=== PATIENT | male | born 1970 | race African-American/Black ===

== ENCOUNTER 2023-09-22 00:11 | Inpatient (IN) | payer OTHER ==
--- NOTE | 2023-09-22 00:58 | ED ---
Weakness HPI - General Chief complaint: Weakness Stated complaint: N-Stemi/SOB Time Seen by Provider: 09/22/23 00:22 Source: patient, EMS Mode of arrival: EMS Limitations: no limitations - History of Present Illness Initial comments: This patient is a 52-year-old man who arrives here as a transfer from [facility]. The patient states that he had gone to have evaluation for a constellation of symptoms that developed "the day before yesterday," he states that he has been having generalized weakness and fatigue, he's been feeling lightheaded when he walks, and his exercise tolerance is decreased. He states that he feels like he is going to pass out if he walks to the bathroom. The patient had gone to the other hospital had workup that revealed elevated troponin at 0.16, he was diagnosed with NSTEMI, and started on heparin. The patient also had mild elevation of the d-dimer. He did have CT angiography of the chest which was negative forPE and he was transferred here. MD Complaint: generalized weakness Onset/Timin -: days(s) - Related Data Home Medications Medication Instructions Recorded Confirmed Albuterol Sulfate [Albuterol 1 - 2 puff PO RT-Q6H PRN 09/22/23 09/22/23 Sulfate Hfa] Budesonide/Formoterol Fumarate 2 puff INHALATION RT-BID 09/22/23 09/22/23 [Symbicort 160-4.5 Mcg Inhaler] Febuxostat [Uloric] 40 mg PO DAILY 09/22/23 09/22/23 HYDROcodone/APAP 10-325MG [[place] 1 tab PO TID 09/22/23 09/22/23 10-325] PARoxetine HCL [Paxil] 40 mg PO DAILY PRN 09/22/23 09/22/23 metFORMIN HCL [Glucophage] 500 mg PO TID 09/22/23 09/22/23 Previous Rx's Medication Instructions Recorded Aspirin 81 mg PO DAILY 30 Days #30 tab 09/26/23 Atorvastatin [Lipitor] 40 mg PO HS #30 tab 09/26/23 Losartan [Cozaar] 12.5 mg PO DAILY 30 Days #30 tab 09/26/23 Metoprolol Tartrate [Lopressor] 25 mg PO BID 30 Days #60 tab 09/26/23 Pantoprazole Sodium [Protonix] 40 mg PO BID 30 Days #60 tab 09/26/23 Thiamine [Vitamin B-1] 100 mg PO DAILY 30 Days #30 tab 09/26/23 Allergies Allergy/AdvReac Type Severity Reaction Status Date / Time atorvastatin [From Lipitor] Allergy Intermediate Rash/Hives Verified 09/22/23 20:33 ciprofloxacin [From Cipro] Allergy Anaphylaxis Verified 09/22/23 06:34 Penicillins Allergy Unknown Verified 09/22/23 06:34 Childhood Review of Systems ROS Statement: Those systems with pertinent positive or pertinent negative responses have been documented in the HPI. ROS Other: All systems not noted in ROS Statement are negative. Constitutional: Reports: weakness. Denies: fever, chills Eyes: Denies: vision change Respiratory: Denies: cough, dyspnea, wheezes Cardiovascular: Reports: palpitations, dyspnea on exertion, syncope (Hand edness). Denies: chest pain, edema Gastrointestinal: Reports: nausea. Denies: abdominal pain, vomiting, diarrhea Musculoskeletal: Reports: myalgia. Denies: back pain Skin: Denies: rash Neurological: Denies: headache, weakness, numbness Past Medical History Past Medical History: Diabetes Mellitus, Hyperlipidemia, Hypertension Additional Past Medical History / Comment(s): arthritis, chronic foot pain, type 2 diabetic Additional Past Surgical History / Comment(s): R hip Past Psychological History: ADD/ADHD, Anxiety, Depression, PTSD Smoking Status: Current every day smoker Past Alcohol Use History: Abuse, Daily Past Drug Use History: Marijuana General Exam Limitations: no limitations General appearance: alert, in no apparent distress Head exam: Present: atraumatic, normocephalic Eye exam: Present: normal appearance. Absent: scleral icterus, conjunctival injection ENT exam: Present: normal oropharynx Neck exam: Present: normal inspection Respiratory exam: Present: normal lung sounds bilaterally. Absent: respiratory distress, wheezes, rales, rhonchi, stridor, accessory muscle use Cardiovascular Exam: Present: normal rhythm, tachycardia, normal heart sounds. Absent: systolic murmur, diastolic murmur, rubs, gallop GI/Abdominal exam: Present: soft. Absent: distended, tenderness, guarding, rebound, rigid, mass Extremities exam: Present: normal inspection, normal capillary refill. Absent: pedal edema, calf tenderness Back exam: Present: normal inspection. Absent: CVA tenderness (R), CVA tenderness (L) Neurological exam: Present: alert Skin exam: Present: warm, dry, intact, normal color. 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 H Flooring Sales Manager ] Respiratory 18 22 Rate Blood Pressure 119/95 94/71 Blood Pressure [Right Arm] O2 Sat by Pulse 98 98 Oximetry 09/22/23 09/22/23 09/22/23 02:00 03:00 04:00 Temperature Pulse Rate 138 H 129 H 116 H Pulse Rate [ Flooring Sales Manager ] Respiratory 20 15 16 Rate Blood Pressure 90/67 105/78 114/81 Blood Pressure [Right Arm] O2 Sat by Pulse 99 99 97 Oximetry 09/22/23 09/22/23 09/22/23 05:55 05:58 08:00 Temperature 98.6 F 98 F Pulse Rate 186 H 130 H Pulse Rate [ 124 H Flooring Sales Manager ] Respiratory 20 17 Rate Blood Pressure 126/93 Blood Pressure 100/78 [Right Arm] O2 Sat by Pulse 100 99 Oximetry 09/22/23 09/22/23 11:35 15:00 Temperature Pulse Rate Pulse Rate [ 122 H 106 H Flooring Sales Manager ] Respiratory 18 Rate Blood Pressure Blood Pressure 97/62 110/78 [Right Arm] O2 Sat by Pulse 100 Oximetry EKG Findings - EKG Results: EKG: interpreted by ERMD, sinus rhythm, normal axis, normal QRS, normal ST/T EKG shows: tachycardia (Rate 125 bpm) Medical Decision Making - Medical Decision Making This patient is 52-year-old man transferred here from the outside hospital where he had workup and found to have NSTEMI. Was pt. sent in by a medical professional or institution (, PA, EMERGENCY ROOM RN, urgent care, hospital, or jail...) When possible be specific @ -[The patient is transferred from [facility] Did you speak to anyone other than the patient for history (EMS, parent, family, police, friend...)? What history was obtained from this source @ -[Case was discussed with the transferring physician Did you review nursing and triage notes (agree or disagree)? Why? @ -[I reviewed and agree with nursing and triage notes] Were old charts reviewed (outside hosp., previous admission, EMS record, old EKG, old radiological studies, urgent care reports/EKG's, jail records)? Report findings @ -[No old charts were reviewed] Differential Diagnosis (chest pain, altered mental status, abdominal pain women, abdominal pain men, vaginal bleeding, weakness, fever, dyspnea, syncope, headache, dizziness, GI bleed, back pain, seizure, CVA, palpatations, mental health, musculoskeletal)? @ -[Differential Chest Pain: Stable Angina, Unstable Angina, STEMI, NSTEMI Aortic Dissection, Pneumothorax, Musculoskeletal, Esophageal Spasm GERD, Cholecystitis, Pancreatitis, Zoster, this is not meant to be an all-inclusive list. EKG interpreted by me (3pts min.). @ -[As above] X-rays interpreted by me (1pt min.). @ -[None done] CT interpreted by me (1pt min.). @ -[None done] U/S interpreted by me (1pt. min.). @ -[None done] What testing was considered but not performed or refused? (CT, X-rays, U/S, labs)? Why? @ -[None] What meds were considered but not given or refused? Why? @ -[None] Did you discuss the management of the patient with other professionals (professionals i.e. , PA, EMERGENCY ROOM RN, lab, RT, psych nurse, elementary school social worker, file machine operator, teacher, real estate officer, caser)? Give summary @ -[Case discussed with admitting physician and there treatment recommendations are incorporated Was smoking cessation discussed for >3mins.? @ -[No] Was critical care preformed (if so, how long)? @ -[No] Were there social determinants of health that impacted care today? How? (Homelessness, low income, unemployed, alcoholism, drug addiction, transpo rtation, low edu. Level, literacy, decrease access to med. care, care home, rehab)? @ -[No] Was there de-escalation of care discussed even if they declined (Discuss DNR or withdrawal of care, Hospice)? DNR status @ -[No] What co-morbidities impacted this encounter? (DM, HTN, Smoking, COPD, CAD, Cancer, CVA, ARF, Chemo, Hep., AIDS, mental health diagnosis, sleep apnea, morbid obesity)? @ -[None] Was patient admitted / discharged? Hospital course, mention meds given and route, prescriptions, significant lab abnormalities, going to OR and other pertinent info. @ -[Patient is admitted to have further evaluation as well as cardiology consultation. Undiagnosed new problem with uncertain prognosis? @ -[No] Drug Therapy requiring intensive monitoring for toxicity (Heparin, Nitro, Insulin, Cardizem)? @ -[No] Were any procedures done? @ -[No] Diagnosis/symptom? @ -[Acute NSTEMI Acute, or Chronic, or Acute on Chronic? @ -[Acute Uncomplicated (without systemic symptoms) or Complicated (systemic symptoms)? @ -[Uncomplicated Side effects of treatment? @ -[No] Exacerbation, Progression, or Severe Exacerbation? @ -[No] Poses a threat to life or bodily function? How? (Chest pain, [place], [place], pneumonia, PE, COPD, DKA, ARF, appy, cholecystitis, CVA, Diverticulitis, Homicidal, Suicidal, threat to staff... and all critical care pts) @ -[No] - Lab Data Result diagrams: 09/26/23 07:15 09/26/23 07:15 Disposition Clinical Impression: Non-ST elevation [place] (NSTEMI) Disposition: ADMITTED IP TO THIS HOSP Condition: Fair Is patient prescribed a controlled substance at d/c from ED?: No
[2023-09-22] MEDS ORDERED: NITROGLYCERIN SL TABS 0.4 MG TAB SUBLINGUAL PRN ×2 (01:01→11:12)
[2023-09-22] MEDS ORDERED: chlordiazePOXIDE 25 MG CAP PO PRN (01:03)
[2023-09-22] MEDS ORDERED: HEPARIN SODIUM 1,000 UN/ML (10ML VL) IV PRN (01:03)
[2023-09-22] MEDS ORDERED: LORazepam 2 MG/ML INJ IV PRN ×2 (01:03)
[2023-09-22] MEDS: HEPARIN SOD,PORK IN 0.45% NACL 25,000 UNIT in 0.45% NACL 1 250ML.BAG IV SCH (01:44)
[2023-09-22] MEDS: THIAMINE 100 MG/ML 2 ML VIAL IM STA (01:50)
[2023-09-22] MEDS: hydrALAZINE HCL 20 MG/ML 1 ML VIAL IVP STA (02:59)
[2023-09-22] MEDS: SODIUM CHLORIDE 0.9% 1,000 ML IV ONE (03:15)
[2023-09-22 06:06] LABS: Glucose,Whole Blood 181 mg/dL (70-110)
[2023-09-22] MEDS: LORazepam 2 MG/ML INJ IV PRN (07:05)
[2023-09-22 09:53] LABS: ALT 93 U/L (4-49); AST 49 U/L (17-59); African American GFR (CKD) >90 (>60 ml/min/1.73 sqM); Albumin 2.5 g/dL (3.5-5.0); Alkaline Phosphatase 59 U/L (38-126); Anion Gap 7 mmol/L; Blood Urea Nitrogen 48 mg/dL (9-20); Carbon Dioxide 17 mmol/L (22-30); Chloride 116 mmol/L (98-107); Glucose 145 mg/dL (74-99); Non-African American GFR(CKD) 90 (>60 ml/min/1.73 sqM); Potassium 4.1 mmol/L (3.5-5.1); Sodium 140 mmol/L (137-145); Total Bilirubin 0.7 mg/dL (0.2-1.3)
[2023-09-22] MEDS ORDERED: ALBUTEROL NEBULIZED 2.5 MG/3 ML INHALATION PRN (10:07)
[2023-09-22] MEDS ORDERED: ALPRAZolam 0.5 MG TAB PO PRN (11:12)
[2023-09-22] MEDS ORDERED: ALPRAZolam 0.25 MG TAB PO PRN (11:12)
[2023-09-22] MEDS: METOPROLOL TARTRATE 25 MG TAB PO SCH (11:14)
--- NOTE | 2023-09-22 11:16 | P.CRDCN ---
History of Present Illness History of present illness: HISTORY OF PRESENT ILLNESS: This is a 52-year-old male with a past medical history significant for hypertension, diabetes, ADD, anxiety, depression, PTSD, nicotine dependence, and alcohol abuse. 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 We have been asked to see the patient in consultation for abnormal troponins. Patient examined at the bedside. Patient initially presented to [facility] for weakness, fatigue, and lightheadedness. The patient states he was called by his PCP and told he had elevated liver tests and to go to the ER. The patient was found to have elevated troponins of 0.16 and was started on IV heparin and transferred to [facility]. The patient also had a CTA performed at [facility] which was negative for PE. At the time of examination, the patient denies any chest pain or pressure. He denies any shortness of breath. He states he is supposed to have a stress test performed on an outpatient basis in the near future. * EKG reveals sinus tachycardia with no signs of acute ischemia * Laboratory data: Troponin 0.387. 0.290. * Current home cardiac medications include amlodipine 7.5 mg daily and Catapres 0.1 mg 3 times a day REVIEW OF SYSTEMS: At the time of my exam: CONSTITUTIONAL: Denies fever or chills. HEENT: Denies blurred vision, vision changes, or eye pain. Denies hemoptysis CARDIOVASCULAR: Denies chest pain. Denies orthopnea. Denies PND. Denies palpitations RESPIRATORY: Denies shortness of breath. GASTROINTESTINAL: Denies abdominal pain. Denies nausea or vomiting. HEMATOLOGIC: Denies bleeding disorders. GENITOURINARY: Denies any blood in urine. SKIN: Denies pruitis. Denies rash. PHYSICAL EXAM: VITAL SIGNS: Reviewed. GENERAL: Well-developed in no acute distress. HEENT: Head is normocephalic. Pupils are equal, round. Sclerae anicteric. Mucous membranes of the mouth are moist. Neck supple. No JVD or thyromegaly LUNGS: Respirations even and unlabored. Lungs essentially clear to auscultation bilaterally. HEART: Regular rate and rhythm. S1 and S2 heard. ABDOMEN: Soft. Nondistended. Nontender. EXTREMITIES: Normal range of motion. No clubbing or cyanosis. Peripheral pulses intact. No lower extremity edema NEUROLOGIC: Awake and alert. Oriented x 3. ASSESSMENT: Generalized weakness Lightheadedness Non-STEMI Mildly elevated LFTs Hypertension Diabetes ADD Anxiety Depression PTSD Nicotine dependence Alcohol abuse, patient drinks 1 pint per day Marijuana use PLAN: Obtain 2-D echo to assess cardiac structure and function Add aspirin 81 mg daily, atorvastatin 40 mg at night, and metoprolol 25 mg twice a day Check lipid panel and hemoglobin A1c Continue telemetry monitoring Nothing by mouth midnight Patient to undergo cardiac catheterization tomorrow with Dr. Gallegos Recommend abstinence from alcohol, marijuana, and smoking cessation Further recommendations pending patient's course Nurse practitioner note has been reviewed by physician. Signing provider agrees with the documented findings, assessment, and plan of care. Past Medical History Past Medical History: Diabetes Mellitus, Hyperlipidemia, Hypertension Additional Past Medical History / Comment(s): arthritis, chronic foot pain, type 2 diabetic Additional Past Surgical History / Comment(s): R hip Past Psychological History: ADD/ADHD, Anxiety, Depression, PTSD Smoking Status: Current every day smoker Past Alcohol Use History: Abuse, Daily Past Drug Use History: Marijuana Medications and Allergies Home Medications Medication Instructions Recorded Confirmed Type Albuterol Sulfate [Albuterol 1 - 2 puff PO RT-Q6H PRN 09/22/23 09/22/23 History Sulfate Hfa] Budesonide/Formoterol Fumarate 2 puff INHALATION RT-BID 09/22/23 09/22/23 History [Symbicort 160-4.5 Mcg Inhaler] Febuxostat [Uloric] 40 mg PO DAILY 09/22/23 09/22/23 History HYDROcodone/APAP 10-325MG [[place] 1 tab PO TID 09/22/23 09/22/23 History 10-325] PARoxetine HCL [Paxil] 40 mg PO DAILY PRN 09/22/23 09/22/23 History amLODIPine [Norvasc] 7.5 mg PO DAILY 09/22/23 09/22/23 History cloNIDine HCL [Catapres] 0.1 mg PO TID 09/22/23 09/22/23 History metFORMIN HCL [Glucophage] 500 mg PO TID 09/22/23 09/22/23 History Allergies Allergy/AdvReac Type Severity Reaction Status Date / Time ciprofloxacin [From Cipro] Allergy Anaphylaxis Verified 09/22/23 06:34 Penicillins Allergy Unknown Verified 09/22/23 06:34 Childhood Physical Exam Vitals: Vital Signs Temp Pulse Pulse Resp BP Pulse Ox 09/22/23 05:58 98.6 F 130 H 20 126/93 100 09/22/23 05:55 186 H 09/22/23 04:00 116 H 16 114/81 97 09/22/23 03:00 129 H 15 105/78 99 09/22/23 02:00 138 H 20 90/67 99 09/22/23 01:00 131 H 22 94/71 98 09/22/23 00:25 126 H 09/22/23 00:13 99.4 F 125 H 18 119/95 98 Intake and Output 09/21/23 09/22/23 09/22/23 22:59 06:59 14:59 Other: Weight 108.862 kg Results 09/22/23 08:24 Cardiac Enzymes 09/22/23 09/22/23 Range/Units 01:19 04:47 Troponin I 0.387 H* 0.290 H* (0.000-0.034) ng/mL Coagulation 09/22/23 Range/Units 04:47 APTT 28.8 (22.0-30.0) sec Current Medications Generic Name Dose Route Start Last Admin Trade Name Freq PRN Reason Stop Dose Admin Aspirin 325 mg 09/23/23 09:00 Aspirin 325 Mg Tab PO DAILY IRMA Chlordiazepoxide HCl 25 mg 09/22/23 01:03 Chlordiazepoxide 25 Mg Cap PO Q4HR PRN [place] 4 To 5 Heparin Sodium (Porcine) 0 unit 09/22/23 01:03 Heparin Sodium 1,000 Un/Ml (10ml Vl) IV PER PROTOCOL PRN Low PTT Protocol Heparin Sodium/Sodium Chloride 250 mls @ 10 mls/hr 09/22/23 01:15 09/22/23 01:44 25,000 unit/ Sodium Chloride IV 9.1859 units/kg/hr .Q24H IRMA 10 mls/hr Administration Protocol 9.1859 UNITS/KG/HR Lorazepam 2 mg 09/22/23 01:03 Lorazepam 2 Mg/Ml Inj IV 09/24/23 01:04 Q10M PRN CIWA 16 or higher Lorazepam 1 mg 09/22/23 01:03 09/22/23 07:05 Lorazepam 2 Mg/Ml Inj IV 1 mg Q2HR PRN Administration CIWA 8 or 9 Lorazepam 1 mg 09/22/23 01:03 Lorazepam 2 Mg/Ml Inj IV Q1HR PRN CIWA 10 to 15 Nitroglycerin 0.4 mg 09/22/23 01:01 Nitroglycerin Sl Tabs 0.4 Mg Tab SUBLINGUAL Q5M PRN Chest Pain Thiamine HCl 100 mg 09/23/23 09:00 Thiamine 100 Mg Tab PO DAILY IRMA Intake and Output 09/21/23 09/22/23 09/22/23 22:59 06:59 14:59 Other: Weight 108.862 kg
[2023-09-22] MEDS ORDERED: DEXTROSE 50% SYRINGE 50 ML IVP PRN ×2 (12:01)
--- NOTE | 2023-09-22 12:05 | P.HPIM ---
History of Present Illness H&P Date: 09/22/23 History of present illness; patient is a 52-year-old gentleman with past medical history significant for hypertension, diabetes mellitus, depression who is a transfer from [facility] for elevated troponins. Patient stated was all right one week back when he started noticing that he was getting short of breath on exertion. Patient stated that he was very weak, unable to stand straight. Patient stated that he was hurting all over the body. Because of these symptoms, patient went to his PCP who ran some blood work . Later his PCP told him to, immediately come to the ER so patient went to [facility]. Patient noticed that he was getting short of breath on rest as well as exertion. Denied any chest pain. There was no complain of any nausea, vomiting or a bdominal pain. Because of these symptoms, patient was worked up at [facility], troponin was elevated . CTA chest done was negative for any PE. Patient started on pharmacy dose heparin and was transferred to [facility] REVIEW OF SYSTEMS: CONSTITUTIONAL: No fever, as mentioned above HEENT: No recent visual problems or hearing problems. Denied any sore throat. CARDIOVASCULAR: As mentioned above PULMONARY: As mentioned above GASTROINTESTINAL: No diarrhea, no nausea, no vomiting, no abdominal pain. NEUROLOGICAL: No headaches, no weakness, no numbness. HEMATOLOGICAL: Denies any bleeding or petechiae. GENITOURINARY: Denies any burning micturition, frequency, or urgency. MUSCULOSKELETAL/RHEUMATOLOGICAL: Denies any joint pain, swelling, or any muscle pain. ENDOCRINE: Denies any polyuria or polydipsia. The rest of the 14-point review of systems is negative. PHYSICAL EXAMINATION: GENERAL: The patient is alert and oriented x3, not in any acute distress. Well developed, well nourished. HEENT: Pupils are round and equally reacting to light. EOMI. No scleral icterus. No conjunctival pallor. Normocephalic, atraumatic. No pharyngeal erythema. No thyromegaly. CARDIOVASCULAR: S1 and S2 present. No murmurs, rubs, or gallops. PULMONARY: Chest is clear to auscultation, no wheezing or crackles. ABDOMEN: Soft, nontender, nondistended, normoactive bowel sounds. No palpable organomegaly. MUSCULOSKELETAL: No joint swelling or deformity. EXTREMITIES: No cyanosis, clubbing, or pedal edema. NEUROLOGICAL: Gross neurological examination did not reveal any focal deficits. SKIN: No rashes. Assessment and plan Non-ST elevation [place] Hypertension Rev-luuqrhd-olxeabydv diabetes mellitus ADD Anxiety Depression PTSD Nicotine dependence Alcohol abuse, patient drinks 1 pint per day Marijuana use Monitor vital signs Monitor CBC Monitor CMP Continue telemetry monitoring Trend troponin Ordered 2-D echo Check HbA1c level Check lipid panel Continue pharmacy dose heparin Continue CIWA protocol Continue thiamine and folic acid Cardiology consulted Hold blood pressure medications at this time as patient is normotensive Resume home meds Labs and medication were reviewed.. Continue same treatment. Continue with sym ptomatic treatment. Resume home medication. Monitor labs and vitals. DVT and GI prophylaxis. Further recommendations as per clinical course of the patient Dictation was produced using [employer] dictation software. please excuse any grammatical, word or spelling errors. Past Medical History Past Medical History: Diabetes Mellitus, Hyperlipidemia, Hypertension Additional Past Medical History / Comment(s): arthritis, chronic foot pain, type 2 diabetic Additional Past Surgical History / Comment(s): R hip Past Psychological History: ADD/ADHD, Anxiety, Depression, PTSD Smoking Status: Current every day smoker Past Alcohol Use History: Abuse, Daily Past Drug Use History: Marijuana Medications and Allergies Home Medications Medication Instructions Recorded Confirmed Type Albuterol Sulfate [Albuterol 1 - 2 puff PO RT-Q6H PRN 09/22/23 09/22/23 History Sulfate Hfa] Budesonide/Formoterol Fumarate 2 puff INHALATION RT-BID 09/22/23 09/22/23 History [Symbicort 160-4.5 Mcg Inhaler] Febuxostat [Uloric] 40 mg PO DAILY 09/22/23 09/22/23 History HYDROcodone/APAP 10-325MG [[place] 1 tab PO TID 09/22/23 09/22/23 History 10-325] PARoxetine HCL [Paxil] 40 mg PO DAILY PRN 09/22/23 09/22/23 History amLODIPine [Norvasc] 7.5 mg PO DAILY 09/22/23 09/22/23 History cloNIDine HCL [Catapres] 0.1 mg PO TID 09/22/23 09/22/23 History metFORMIN HCL [Glucophage] 500 mg PO TID 09/22/23 09/22/23 History Allergies Allergy/AdvReac Type Severity Reaction Status Date / Time ciprofloxacin [From Cipro] Allergy Anaphylaxis Verified 09/22/23 06:34 Penicillins Allergy Unknown Verified 09/22/23 06:34 Childhood Physical Exam Vitals: Vital Signs Temp Pulse Pulse Resp BP BP Pulse Ox 09/22/23 08:00 98 F 124 H 17 100/78 99 09/22/23 05:58 98.6 F 130 H 20 126/93 100 09/22/23 05:55 186 H 09/22/23 04:00 116 H 16 114/81 97 09/22/23 03:00 129 H 15 105/78 99 09/22/23 02:00 138 H 20 90/67 99 09/22/23 01:00 131 H 22 94/71 98 09/22/23 00:25 126 H 09/22/23 00:13 99.4 F 125 H 18 119/95 98 Intake and Output 09/21/23 09/22/23 09/22/23 22:59 06:59 14:59 Other: Weight 108.862 kg Results CBC & Chem 7: 09/22/23 08:24 Labs: Abnormal Lab Results - Last 24 Hours (Table) 09/22/23 09/22/23 09/22/23 Range/Units 01:19 04:47 06:05 Chloride (98-107) mmol/L Carbon Dioxide (22-30) mmol/L BUN (9-20) mg/dL Glucose (74-99) mg/dL POC Glucose (mg/dL) 181 H (70-110) mg/dL Calcium (8.4-10.2) mg/dL ALT (4-49) U/L Troponin I 0.387 H* 0.290 H* (0.000-0.034) ng/mL Total Protein (6.3-8.2) g/dL Albumin (3.5-5.0) g/dL 09/22/23 09/22/23 Range/Units 08:24 08:24 Chloride 116 H (98-107) mmol/L Carbon Dioxide 17 L (22-30) mmol/L BUN 48 H (9-20) mg/dL Glucose 145 H (74-99) mg/dL POC Glucose (mg/dL) (70-110) mg/dL Calcium 8.0 L (8.4-10.2) mg/dL ALT 93 H (4-49) U/L Troponin I 0.194 H* (0.000-0.034) ng/mL Total Protein 5.0 L (6.3-8.2) g/dL Albumin 2.5 L (3.5-5.0) g/dL
[2023-09-22 12:40] LABS: Glucose,Whole Blood 151 mg/dL (70-110)
[2023-09-22] MEDS: INSULIN ASPART (NovoLOG) 100 UNIT/ML VIAL SQ SCH (12:41)
[2023-09-22 15:27] LABS: Basophils # (A) 0.1 k/uL (0-0.2); Basophils % (A) 1 %; Eosinophils # (A) 0.1 k/uL (0-0.7); Eosinophils % (A) 2 %; HCT 25.7 % (39.0-53.0); HGB 8.9 gm/dL (13.0-17.5); Lymphocytes # (A) 4.3 k/uL (1.0-4.8); Lymphocytes % (A) 48 %; MCH 33.6 pg (25.0-35.0); MCHC 34.5 g/dL (31.0-37.0); MCV 97.3 fL (80.0-100.0); Mean Platelet Volume 7.4; Monocytes # (A) 0.4 k/uL (0-1.0); Monocytes % (A) 5 %; Neutrophils # (A) 3.9 k/uL (1.3-7.7); Neutrophils % (A) 43 %; Platelet Count 197 k/uL (150-450); RBC 2.64 m/uL (4.30-5.90); RDW 14.3 % (11.5-15.5); WBC 9.1 k/uL (3.8-10.6)
[2023-09-22 15:59] LABS: ALT 82 U/L (4-49); AST 53 U/L (17-59); African American GFR (CKD) >90 (>60 ml/min/1.73 sqM); Albumin 2.7 g/dL (3.5-5.0); Alkaline Phosphatase 52 U/L (38-126); Anion Gap 5 mmol/L; Blood Urea Nitrogen 50 mg/dL (9-20); Calcium 8.2 mg/dL (8.4-10.2); Carbon Dioxide 20 mmol/L (22-30); Chloride 115 mmol/L (98-107); Glucose 126 mg/dL (74-99); Non-African American GFR(CKD) 88 (>60 ml/min/1.73 sqM); Sodium 140 mmol/L (137-145); Total Protein 5.5 g/dL (6.3-8.2)
[2023-09-22 16:04] LABS: Potassium 4.8 mmol/L (3.5-5.1)
[2023-09-22] MEDS: PANTOPRAZOLE 40 MG/10 ML VIAL IVP ONE (16:22)
[2023-09-22 16:37] LABS: Glucose,Whole Blood 110 mg/dL (70-110)
[2023-09-22] MEDS: ATORVASTATIN 40 MG TAB PO SCH (20:04)
[2023-09-22] MEDS: PANTOPRAZOLE 40 MG/10 ML VIAL IVP SCH (20:04)
[2023-09-22 20:21] LABS: Glucose,Whole Blood 166 mg/dL (70-110)
[2023-09-22 20:46] LABS: Basophils # (A) 0.1 k/uL (0-0.2); Basophils % (A) 1 %; Eosinophils # (A) 0.1 k/uL (0-0.7); Eosinophils % (A) 1 %; HCT 25.3 % (39.0-53.0); HGB 8.6 gm/dL (13.0-17.5); Lymphocytes # (A) 3.6 k/uL (1.0-4.8); Lymphocytes % (A) 47 %; MCH 33.4 pg (25.0-35.0); MCHC 34.2 g/dL (31.0-37.0); MCV 97.8 fL (80.0-100.0); Mean Platelet Volume 7.7; Monocytes # (A) 0.4 k/uL (0-1.0); Monocytes % (A) 5 %; Neutrophils # (A) 3.4 k/uL (1.3-7.7); Neutrophils % (A) 44 %; Platelet Count 215 k/uL (150-450); RBC 2.59 m/uL (4.30-5.90); RDW 14.4 % (11.5-15.5); WBC 7.7 k/uL (3.8-10.6)
[2023-09-22] MEDS: SYMBICORT 160-4.5 MCG INHALER INHALATION SCH (21:56)
[2023-09-23 02:40] LABS: Basophils % (A) 0 %; Eosinophils # (A) 0.1 k/uL (0-0.7); Eosinophils % (A) 1 %; HCT 23.7 % (39.0-53.0); Lymphocytes # (A) 3.4 k/uL (1.0-4.8); Lymphocytes % (A) 54 %; MCH 32.6 pg (25.0-35.0); MCHC 33.6 g/dL (31.0-37.0); Mean Platelet Volume 7.4; Monocytes # (A) 0.3 k/uL (0-1.0); Monocytes % (A) 5 %; Neutrophils # (A) 2.3 k/uL (1.3-7.7); Neutrophils % (A) 36 %; Platelet Count 213 k/uL (150-450); RBC 2.45 m/uL (4.30-5.90); RDW 14.4 % (11.5-15.5); WBC 6.3 k/uL (3.8-10.6)
[2023-09-23 06:21] LABS: Glucose,Whole Blood 132 mg/dL (70-110)
[2023-09-23] MEDS ORDERED: HEPARIN SODIUM,PORCINE (1 ML) 2,500 UNIT in SODIUM CHLORIDE 0.9% 250 ML IRRIGATION PRN (07:00)
[2023-09-23] MEDS ORDERED: HEPARIN SODIUM,PORCINE 10,000 UNIT in SODIUM CHLORIDE 0.9% 1,000 ML IRRIGATION PRN (07:00)
[2023-09-23] MEDS: THIAMINE 100 MG TAB PO SCH (08:47)
[2023-09-23] MEDS ORDERED: ASPIRIN 325 MG TAB PO SCH (09:00)
[2023-09-23 09:03] LABS: Basophils % (A) 1 %; Eosinophils # (A) 0.1 k/uL (0-0.7); Eosinophils % (A) 2 %; HCT 22.3 % (39.0-53.0); HGB 7.4 gm/dL (13.0-17.5); Lymphocytes # (A) 2.8 k/uL (1.0-4.8); Lymphocytes % (A) 50 %; MCH 32.5 pg (25.0-35.0); MCHC 33.4 g/dL (31.0-37.0); MCV 97.3 fL (80.0-100.0); Mean Platelet Volume 7.7; Monocytes # (A) 0.3 k/uL (0-1.0); Monocytes % (A) 6 %; Neutrophils # (A) 2.1 k/uL (1.3-7.7); Neutrophils % (A) 38 %; Platelet Count 182 k/uL (150-450); RBC 2.29 m/uL (4.30-5.90); RDW 14.4 % (11.5-15.5); WBC 5.6 k/uL (3.8-10.6)
[2023-09-23 09:09] LABS: Prothrombin Time 11.1 sec (10.0-12.5)
[2023-09-23 09:21] LABS: ALT 72 U/L (4-49); AST 55 U/L (17-59); African American GFR (CKD) 86 (>60 ml/min/1.73 sqM); Albumin 2.4 g/dL (3.5-5.0); Alkaline Phosphatase 59 U/L (38-126); Anion Gap 2 mmol/L; Blood Urea Nitrogen 29 mg/dL (9-20); Calcium 8.3 mg/dL (8.4-10.2); Carbon Dioxide 22 mmol/L (22-30); Chloride 115 mmol/L (98-107); Glucose 108 mg/dL (74-99); Non-African American GFR(CKD) 74 (>60 ml/min/1.73 sqM); Potassium 4.2 mmol/L (3.5-5.1); Sodium 139 mmol/L (137-145); Total Bilirubin 0.6 mg/dL (0.2-1.3); Total Protein 4.7 g/dL (6.3-8.2)
[2023-09-23] MEDS: ASPIRIN 325 MG TAB PO ONE (09:44)
[2023-09-23] MEDS: ATORVASTATIN 80 MG TAB PO ONE (09:44)
[2023-09-23 10:14] VITALS: BMI 31.6
--- NOTE | 2023-09-23 11:54 | CA ---
Transthoracic Echo Report Name: Krish Mcmanus Age: 52 Gender: M : 1970 Exam Date: 09/22/2023 09:51 Exam Location: [place] [facility] Ht (in): 73 Wt (lb): 240 Ordering Physician: Eliane Olmedo Attending/Referring Phys: [id number], Shara Mill Oiler Juanis Russell [facility] Procedure CPT: Indications: Elevated troponins, LV function Cardiac Hx: Technical Quality: Technically difficult study Contrast 1: Definity Total Dose (mL): 6 Contrast 2: Total Dose (mL): MEASUREMENTS (Male / Female) Normal Values 2D ECHO LV Diastolic Diameter PLAX 3.7 cm 4.2 - 5.9 / 3.9 - 5.3 cm LV Systolic Diameter PLAX 3.0 cm IVS Diastolic Thickness 1.1 cm 0.6 - 1.0 / 0.6 - 0.9 cm LVPW Diastolic Thickness 1.0 cm 0.6 - 1.0 / 0.6 - 0.9 cm LV Relative Wall Thickness 0.6 LVOT Diameter 2.1 cm Ascending Aorta Diameter 3.2 cm M-MODE Aortic Root Diameter MM 3.2 cm LA Systolic Diameter MM 3.4 cm LA Ao Ratio MM 1.1 AV Cusp Separation MM 2.3 cm DOPPLER AV Peak Velocity 92.3 cm/s AV Peak Gradient 3.4 mmHg AV Mean Velocity 70.5 cm/s AV Mean Gradient 2.3 mmHg AV Velocity Time Integral 11.4 cm LVOT Peak Velocity 83.8 cm/s LVOT Peak Gradient 2.8 mmHg LVOT Velocity Time Integral 12.3 cm LVOT Stroke Volume 42.6 cm??? LVOT Stroke Volume Index 18.3 ml/m??? LVOT Cardiac Index 2152.7 cm???/min???m??? AV Area Cont Eq vti 3.7 cm??? AV Area Cont Eq pk 3.1 cm??? LV E' Lateral Velocity 11.4 cm/s LV E' Septal Velocity 10.2 cm/s TR Peak Velocity 220.9 cm/s TR Peak Gradient 19.5 mmHg Right Atrial Pressure 3.0 mmHg Pulmonary Artery Systolic Pressu 22.5 mmHg Right Ventricular Systolic Press 22.5 mmHg FINDINGS Left Ventricle Mildly increased left ventricular wall thickness. Left ventricular cavity size normal. Left ventricular ejection fraction is estimated at 40-45%. Mildly reduced global left ventricular systolic function. Right Ventricle Right ventricle not well visualized. Right Atrium Right atrium not well visualized. Left Atrium Normal left atrial size. Mitral Valve Mitral valve not well visualized. No mitral regurgitation. Aortic Valve Aortic valve not well visualized. Trileaflet aortic valve. No aortic valve stenosis or regurgitation. Tricuspid Valve Tricuspid valve not well visualized. Trace tricuspid regurgitation. Pulmonic Valve Pulmonic valve not well visualized. Pericardium No pericardial effusion. Aorta Normal size aortic root and proximal ascending aorta. CONCLUSIONS Technically difficult study. Left ventricular ejection fraction is estimated at 40%. Right ventricle not well visualized No significant valvular dysfunction Previewed by: Dr Melchor Rodriguez (Electronically Signed) Final Date: 23 September 2023 11:53
[2023-09-23 11:56] LABS: Glucose,Whole Blood 174 mg/dL (70-110)
--- NOTE | 2023-09-23 12:38 | P.PN ---
Subjective HISTORY OF PRESENT ILLNESS: This is a 52-year-old male with a past medical history significant for hypertension, diabetes, ADD, anxiety, depression, PTSD, nicotine dependence, and alcohol abuse. Patient does not follow with a outside cutter hand. We have been asked to see the patient in consultation for abnormal troponins. Patient examined at the bedside. Patient initially presented to [facility] for weakness, fatigue, and lightheadedness. The patient states he was called by his PCP and told he had elevated liver tests and to go to the ER. The patient was found to have elevated troponins of 0.16 and was started on IV heparin and transferred to [facility]. The patient also had a CTA performed at [facility] which was negative for PE. At the time of examination, the patient denies any chest pain or pressure. He denies any shortness of breath. He states he is supposed to have a stress test performed on an outpatient basis in the near future. * EKG reveals sinus tachycardia with no signs of acute ischemia * Laboratory data: Troponin 0.387. 0.290. * Current home cardiac medications include amlodipine 7.5 mg daily and Catapres 0.1 mg 3 times a day 09/23/2023 Patient examined this morning at the bedside. Patient was started on IV heparin yesterday but he developed dark tarry stools and it was discontinued. He denies chest pain or pressure. Denies SOB. Vital signs are stable. Echo reveals EF 40- 45%. PHYSICAL EXAM: VITAL SIGNS: Reviewed. GENERAL: Well-developed in no acute distress. HEENT: Head is normocephalic. Pupils are equal, round. Sclerae anicteric. Mucous membranes of the mouth are moist. Neck supple. No JVD or thyromegaly LUNGS: Respirations even and unlabored. Lungs essentially clear to auscultation bilaterally. HEART: Regular rate and rhythm. S1 and S2 heard. ABDOMEN: Soft. Nondistended. Nontender. EXTREMITIES: Normal range of motion. No clubbing or cyanosis. Peripheral pulses intact. No lower extremity edema NEUROLOGIC: Awake and alert. Oriented x 3. ASSESSMENT: Generalized weakness Lightheadedness Non-STEMI Cardiomyopathy, ischemic versus nonischemic Mildly elevated LFTs Hypertension Diabetes ADD Anxiety Depression PTSD Nicotine dependence Alcohol abuse, patient drinks 1 pint per day Marijuana use Anemia with black tarry stools PLAN: IV Heparin discontinued. Monitor hemoglobin Continue current cardiac medications General surgery consulted. Await evaluation. Recommend cardiac cath when medically stable Recommend abstinence from alcohol, marijuana, and smoking cessation Further recommendations pending patient's course Nurse practitioner note has been reviewed by physician. Signing provider agrees with the documented findings, assessment, and plan of care. Objective - Vital Signs Vital signs: Vital Signs Temp 98.3 F 09/23/23 08:00 Pulse 100 09/23/23 08:00 Resp 16 09/23/23 08:00 BP 118/76 09/23/23 08:00 Pulse Ox 100 09/23/23 08:00 FiO2 Intake & Output 09/22/23 09/23/23 09/23/23 18:59 06:59 18:59 Intake Total 145.105 240 Output Total 600 800 700 Balance -454.895 -560 -700 Weight 108.862 kg Intake: Intake, IV Titration 145.105 Amount Heparin Sod,Pork in 0.45% 145.105 NaCl 25,000 unit In 0.45 % NaCl 1 250ml.bag @ 9. 1859 UNITS/KG/HR 10 mls/ hr IV .Q24H [facility] Rx#: [id number] Oral 240 Output: Urine 600 800 700 Other: # Voids 1 - Labs CBC & Chem 7: 09/23/23 08:08 09/23/23 08:08 Labs: Abnormal Lab Results - Last 24 Hours (Table) 09/22/23 09/22/23 09/22/23 Range/Units 12:38 15:13 15:13 RBC 2.64 L (4.30-5.90) m/uL Hgb 8.9 L (13.0-17.5) gm/dL Hct 25.7 L (39.0-53.0) % APTT (22.0-30.0) sec Chloride 115 H (98-107) mmol/L Carbon Dioxide 20 L (22-30) mmol/L BUN 50 H (9-20) mg/dL Glucose 126 H (74-99) mg/dL POC Glucose (mg/dL) 151 H (70-110) mg/dL Calcium 8.2 L (8.4-10.2) mg/dL ALT 82 H (4-49) U/L Total Protein 5.5 L (6.3-8.2) g/dL Albumin 2.7 L (3.5-5.0) g/dL Crossmatch 09/22/23 09/22/23 09/22/23 Range/Units 17:56 20:14 20:20 RBC 2.59 L (4.30-5.90) m/uL Hgb 8.6 L (13.0-17.5) gm/dL Hct 25.3 L (39.0-53.0) % APTT 21.9 L (22.0-30.0) sec Chloride (98-107) mmol/L Carbon Dioxide (22-30) mmol/L BUN (9-20) mg/dL Glucose (74-99) mg/dL POC Glucose (mg/dL) 166 H (70-110) mg/dL Calcium (8.4-10.2) mg/dL ALT (4-49) U/L Total Protein (6.3-8.2) g/dL Albumin (3.5-5.0) g/dL Crossmatch 09/23/23 09/23/23 09/23/23 Range/Units 02:24 06:19 08:08 RBC 2.45 L (4.30-5.90) m/uL Hgb 8.0 L (13.0-17.5) gm/dL Hct 23.7 L (39.0-53.0) % APTT (22.0-30.0) sec Chloride 115 H (98-107) mmol/L Carbon Dioxide (22-30) mmol/L BUN 29 H (9-20) mg/dL Glucose 108 H (74-99) mg/dL POC Glucose (mg/dL) 132 H (70-110) mg/dL Calcium 8.3 L (8.4-10.2) mg/dL ALT 72 H (4-49) U/L Total Protein 4.7 L (6.3-8.2) g/dL Albumin 2.4 L (3.5-5.0) g/dL Crossmatch 09/23/23 09/23/23 09/23/23 Range/Units 08:08 11:12 11:53 RBC 2.29 L (4.30-5.90) m/uL Hgb 7.4 L (13.0-17.5) gm/dL Hct 22.3 L (39.0-53.0) % APTT (22.0-30.0) sec Chloride (98-107) mmol/L Carbon Dioxide (22-30) mmol/L BUN (9-20) mg/dL Glucose (74-99) mg/dL POC Glucose (mg/dL) 174 H (70-110) mg/dL Calcium (8.4-10.2) mg/dL ALT (4-49) U/L Total Protein (6.3-8.2) g/dL Albumin (3.5-5.0) g/dL Crossmatch See Detail
--- NOTE | 2023-09-23 13:25 | P.PN ---
Subjective Progress Note Date: 09/23/23 patient is a 52-year-old gentleman with past medical history significant for hypertension, diabetes mellitus, depression who is a transfer from [facility] for elevated troponins. Patient stated was all right one week back when he started noticing that he was getting short of breath on exertion. Patient stated that he was very weak, unable to stand straight. Patient stated that he was hurting all over the body. Because of these symptoms, patient went to his PCP who ran some blood work . Later his PCP told him to, immediately come to the ER so patient went to [facility]. Patient noticed that he was getting short of breath on rest as well as exertion. Denied any chest pain. There was no complain of any nausea, vomiting or abdominal pain. Because of these symptoms, patient was worked up at [facility], troponin was elevated . CTA chest done was negative for any PE. Patient started on pharmacy dose heparin and was transferred to [facility] 09/23. Patient seen and examined. Patient had couple of episodes of black tarry stools yesterday, hemoglobin also dropped to 8 last night and 7.4 this morning. No further episodes of blood or dark colored stools. no complaint hematemesis. Denies any abdominal pain. Currently on clear liquid diet REVIEW OF SYSTEMS: CONSTITUTIONAL: No fever, no malaise,. CARDIOVASCULAR: No chest pain, no palpitations, no syncope. PULMONARY: No shortness of breath, no cough, GASTROINTESTINAL: As mentioned above NEUROLOGICAL: No headaches, no weakness, PHYSICAL EXAMINATION: GENERAL: The patient is alert and oriented x3, not in any acute distress. Well developed, well nourished. HEENT: Pupils are round and equally reacting to light. EOMI. No scleral icterus. No conjunctival pallor. Normocephalic, atraumatic. No pharyngeal erythema. No thyromegaly. CARDIOVASCULAR: S1 and S2 present. No murmurs, rubs, or gallops. PULMONARY: Chest is clear to auscultation, no wheezing or crackles. ABDOMEN: Soft, nontender, nondistended, normoactive bowel sounds. No palpable organomegaly. MUSCULOSKELETAL: No joint swelling or deformity. EXTREMITIES: No cyanosis, clubbing, or pedal edema. NEUROLOGICAL: Gross neurological examination did not reveal any focal deficits. SKIN: No rashes. Assessment and plan Non-ST elevation FL Black tarry stools Acute blood loss anemia Hypertension Gaj-pljwmgj-nhkzhxnag diabetes mellitus ADD Anxiety Depression PTSD Nicotine dependence Alcohol abuse, patient drinks 1 pint per day Marijuana use Monitor vital signs Monitor CBC Monitor CMP Continue telemetry monitoring Ordered 2-D echo Check HbA1c level Check lipid panel Hold pharmacy dose heparin secondary to black tarry stools Continue IV Protonix Ordered 1 unit of packed red blood cell Continue CIWA protocol Continue thiamine and folic acid Cardiology following Gen. surgery consulted , no GI coverage available at this time Labs and medication were reviewed.. Continue same treatment. Continue with symptomatic treatment. Resume home medication. Monitor labs and vitals. DVT and GI prophylaxis. Further recommendations as per clinical course of the patient Dictation was produced using [employer] dictation software. please excuse any grammatical, word or spelling errors. Objective - Vital Signs Vital signs: Vital Signs Temp 98.3 F 09/23/23 08:00 Pulse 100 09/23/23 08:00 Resp 16 09/23/23 08:00 BP 118/76 09/23/23 08:00 Pulse Ox 100 09/23/23 08:00 FiO2 Intake & Output 09/22/23 09/23/23 09/23/23 18:59 06:59 18:59 Intake Total 145.105 240 Output Total 600 800 Balance -454.895 -560 Weight 108.862 kg Intake: Intake, IV Titration 145.105 Amount Heparin Sod,Pork in 0.45% 145.105 NaCl 25,000 unit In 0.45 % NaCl 1 250ml.bag @ 9. 1859 UNITS/KG/HR 10 mls/ hr IV .Q24H [facility] Rx#: [id number] Oral 240 Output: Urine 600 800 Other: # Voids 1 - Labs CBC & Chem 7: 09/23/23 08:08 09/23/23 08:08 Labs: Abnormal Lab Results - Last 24 Hours (Table) 09/22/23 09/22/23 09/22/23 Range/Units 10:21 12:38 15:13 RBC 2.64 L (4.30-5.90) m/uL Hgb 8.9 L (13.0-17.5) gm/dL Hct 25.7 L (39.0-53.0) % APTT 34.8 H (22.0-30.0) sec Chloride (98-107) mmol/L Carbon Dioxide (22-30) mmol/L BUN (9-20) mg/dL Glucose (74-99) mg/dL POC Glucose (mg/dL) 151 H (70-110) mg/dL Calcium (8.4-10.2) mg/dL ALT (4-49) U/L Total Protein (6.3-8.2) g/dL Albumin (3.5-5.0) g/dL 09/22/23 09/22/23 09/22/23 Range/Units 15:13 17:56 20:14 RBC 2.59 L (4.30-5.90) m/uL Hgb 8.6 L (13.0-17.5) gm/dL Hct 25.3 L (39.0-53.0) % APTT 21.9 L (22.0-30.0) sec Chloride 115 H (98-107) mmol/L Carbon Dioxide 20 L (22-30) mmol/L BUN 50 H (9-20) mg/dL Glucose 126 H (74-99) mg/dL POC Glucose (mg/dL) (70-110) mg/dL Calcium 8.2 L (8.4-10.2) mg/dL ALT 82 H (4-49) U/L Total Protein 5.5 L (6.3-8.2) g/dL Albumin 2.7 L (3.5-5.0) g/dL 09/22/23 09/23/23 09/23/23 Range/Units 20:20 02:24 06:19 RBC 2.45 L (4.30-5.90) m/uL Hgb 8.0 L (13.0-17.5) gm/dL Hct 23.7 L (39.0-53.0) % APTT (22.0-30.0) sec Chloride (98-107) mmol/L Carbon Dioxide (22-30) mmol/L BUN (9-20) mg/dL Glucose (74-99) mg/dL POC Glucose (mg/dL) 166 H 132 H (70-110) mg/dL Calcium (8.4-10.2) mg/dL ALT (4-49) U/L Total Protein (6.3-8.2) g/dL Albumin (3.5-5.0) g/dL 09/23/23 09/23/23 Range/Units 08:08 08:08 RBC 2.29 L (4.30-5.90) m/uL Hgb 7.4 L (13.0-17.5) gm/dL Hct 22.3 L (39.0-53.0) % APTT (22.0-30.0) sec Chloride 115 H (98-107) mmol/L Carbon Dioxide (22-30) mmol/L BUN 29 H (9-20) mg/dL Glucose 108 H (74-99) mg/dL POC Glucose (mg/dL) (70-110) mg/dL Calcium 8.3 L (8.4-10.2) mg/dL ALT 72 H (4-49) U/L Total Protein 4.7 L (6.3-8.2) g/dL Albumin 2.4 L (3.5-5.0) g/dL
--- NOTE | 2023-09-23 13:42 | P.GSCN ---
History of Present Illness Consult date: 09/23/23 History of present illness: CHIEF COMPLAINT: Fatigue and weakness HISTORY OF PRESENT ILLNESS: This is a 52-year-old male who presented to the hospital with complaints of fatigue, weakness and dizziness. He was found to have elevated troponins. He was diagnosed with non-ST elevated ND. He was started on IV heparin. Patient started to have black stools last night. The IV heparin was then discontinued. Patient denies any NSAID use. Denies being on any blood thinners prior to admission. Last colonoscopy he reports was 4 years ago and unremarkable. He's never had EGD. Hemoglobin was 8.9 on admission did drop to 7.4. Patient denies abdominal pain. Denies any nausea or vomiting. Denies any chest pain. PAST MEDICAL HISTORY: Diabetes Mellitus, Hyperlipidemia, Hypertension, anxiety, depression, PTSD PAST SURGICAL HISTORY: See below. No abdominal surgeries MEDICATIONS: See below ALLERGIES: See below SOCIAL HISTORY: No illicit drug use. Daily alcohol abuse. Nicotine dependence. Marijuana use. REVIEW OF SYSTEMS: CONSTITUTIONAL: Denies fever or chills. HEENT: Denies blurred vision, vision changes, or eye pain. Denies hemoptysis CARDIOVASCULAR: Denies chest pain or pressure. RESPIRATORY: No shortness of breath. GASTROINTESTINAL: See HPI for pertinent findings HEMATOLOGIC: Denies bleeding disorders. GENITOURINARY: Denies any blood in urine or increased urinary frequency. SKIN: Denies pruitis. Denies rash. PHYSICAL EXAM: VITAL SIGNS: Reviewed GENERAL: Well-developed in no acute distress. ABDOMEN: Soft. Nondistended. Nontender NEUROLOGIC: Alert and oriented. Cranial nerves II through XII grossly intact. LABORATORY DATA: WBC 5.6 Hgb 7.4 platelets 182 INR 1.0 Sodium 139 potassium 4.2 creatinine 1.12 Elevated troponins IMAGING: Echo EF 40% ASSESSMENT: 1. Acute GI bleed with black stools after starting IV heparin 2. Anemia 3. Non-ST elevated ND followed by cardiology PLAN: -Recommend endoscopy when medically stable -Continue IV Protonix twice a day -Continue to monitor hemoglobin -Continue to monitor for any signs or symptoms of bleeding -Agree with blood transfusion. Patient is receiving 1 unit of blood -Continue to hold anticoagulation -Continue clear liquid diet Physician Tile Picker note has been reviewed by physician. Signing provider agrees with the documented findings, assessment, and plan of care. Past Medical History Past Medical History: Diabetes Mellitus, Hyperlipidemia, Hypertension Additional Past Medical History / Comment(s): arthritis, chronic foot pain, type 2 diabetic History of Any Multi-Drug Resistant Organisms: None Reported Additional Past Surgical History / Comment(s): R hip Past Psychological History: ADD/ADHD, Anxiety, Depression, PTSD Smoking Status: Current every day smoker Past Alcohol Use History: Abuse, Daily Past Drug Use History: Marijuana Medications and Allergies Home Medications Medication Instructions Recorded Confirmed Type Albuterol Sulfate [Albuterol 1 - 2 puff PO RT-Q6H PRN 09/22/23 09/22/23 History Sulfate Hfa] Budesonide/Formoterol Fumarate 2 puff INHALATION RT-BID 09/22/23 09/22/23 History [Symbicort 160-4.5 Mcg Inhaler] Febuxostat [Uloric] 40 mg PO DAILY 09/22/23 09/22/23 History HYDROcodone/APAP 10-325MG [[place] 1 tab PO TID 09/22/23 09/22/23 History 10-325] PARoxetine HCL [Paxil] 40 mg PO DAILY PRN 09/22/23 09/22/23 History amLODIPine [Norvasc] 7.5 mg PO DAILY 09/22/23 09/22/23 History cloNIDine HCL [Catapres] 0.1 mg PO TID 09/22/23 09/22/23 History metFORMIN HCL [Glucophage] 500 mg PO TID 09/22/23 09/22/23 History Allergies Allergy/AdvReac Type Severity Reaction Status Date / Time atorvastatin [From Lipitor] Allergy Intermediate Rash/Hives Verified 09/22/23 20:33 ciprofloxacin [From Cipro] Allergy Anaphylaxis Verified 09/22/23 06:34 Penicillins Allergy Unknown Verified 09/22/23 06:34 Childhood Surgical - Exam Vital Signs Temp Pulse Resp BP Pulse Ox 99.4 F 125 H 18 119/95 98 09/22/23 00:13 09/22/23 00:13 09/22/23 00:13 09/22/23 00:13 09/22/23 00:13 Results - Labs 09/23/23 08:08 09/23/23 08:08 Abnormal Lab Results - Last 24 Hours (Table) 09/22/23 09/22/23 09/22/23 Range/Units 10:21 12:38 15:13 RBC 2.64 L (4.30-5.90) m/uL Hgb 8.9 L (13.0-17.5) gm/dL Hct 25.7 L (39.0-53.0) % APTT 34.8 H (22.0-30.0) sec Chloride (98-107) mmol/L Carbon Dioxide (22-30) mmol/L BUN (9-20) mg/dL Glucose (74-99) mg/dL POC Glucose (mg/dL) 151 H (70-110) mg/dL Calcium (8.4-10.2) mg/dL ALT (4-49) U/L Total Protein (6.3-8.2) g/dL Albumin (3.5-5.0) g/dL 09/22/23 09/22/23 09/22/23 Range/Units 15:13 17:56 20:14 RBC 2.59 L (4.30-5.90) m/uL Hgb 8.6 L (13.0-17.5) gm/dL Hct 25.3 L (39.0-53.0) % APTT 21.9 L (22.0-30.0) sec Chloride 115 H (98-107) mmol/L Carbon Dioxide 20 L (22-30) mmol/L BUN 50 H (9-20) mg/dL Glucose 126 H (74-99) mg/dL POC Glucose (mg/dL) (70-110) mg/dL Calcium 8.2 L (8.4-10.2) mg/dL ALT 82 H (4-49) U/L Total Protein 5.5 L (6.3-8.2) g/dL Albumin 2.7 L (3.5-5.0) g/dL 09/22/23 09/23/23 09/23/23 Range/Units 20:20 02:24 06:19 RBC 2.45 L (4.30-5.90) m/uL Hgb 8.0 L (13.0-17.5) gm/dL Hct 23.7 L (39.0-53.0) % APTT (22.0-30.0) sec Chloride (98-107) mmol/L Carbon Dioxide (22-30) mmol/L BUN (9-20) mg/dL Glucose (74-99) mg/dL POC Glucose (mg/dL) 166 H 132 H (70-110) mg/dL Calcium (8.4-10.2) mg/dL ALT (4-49) U/L Total Protein (6.3-8.2) g/dL Albumin (3.5-5.0) g/dL 09/23/23 09/23/23 Range/Units 08:08 08:08 RBC 2.29 L (4.30-5.90) m/uL Hgb 7.4 L (13.0-17.5) gm/dL Hct 22.3 L (39.0-53.0) % APTT (22.0-30.0) sec Chloride 115 H (98-107) mmol/L Carbon Dioxide (22-30) mmol/L BUN 29 H (9-20) mg/dL Glucose 108 H (74-99) mg/dL POC Glucose (mg/dL) (70-110) mg/dL Calcium 8.3 L (8.4-10.2) mg/dL ALT 72 H (4-49) U/L Total Protein 4.7 L (6.3-8.2) g/dL Albumin 2.4 L (3.5-5.0) g/dL Diabetes panel 09/22/23 09/23/23 Range/Units 15:13 08:08 Sodium 140 139 (137-145) mmol/L Potassium 4.8 4.2 (3.5-5.1) mmol/L Chloride 115 H 115 H (98-107) mmol/L Carbon Dioxide 20 L 22 (22-30) mmol/L BUN 50 H 29 H (9-20) mg/dL Creatinine 0.98 1.12 (0.66-1.25) mg/dL Glucose 126 H 108 H (74-99) mg/dL Calcium 8.2 L 8.3 L (8.4-10.2) mg/dL AST 53 55 (17-59) U/L ALT 82 H 72 H (4-49) U/L Alkaline Phosphatase 52 59 (38-126) U/L Total Protein 5.5 L 4.7 L (6.3-8.2) g/dL Albumin 2.7 L 2.4 L (3.5-5.0) g/dL Thyroid panel 09/23/23 Range/Units 08:08 TSH 1.610 (0.465-4.680) mIU/L Calcium panel 09/22/23 09/23/23 Range/Units 15:13 08:08 Calcium 8.2 L 8.3 L (8.4-10.2) mg/dL Albumin 2.7 L 2.4 L (3.5-5.0) g/dL Pituitary panel 09/22/23 09/23/23 Range/Units 15:13 08:08 Sodium 140 139 (137-145) mmol/L Potassium 4.8 4.2 (3.5-5.1) mmol/L Chloride 115 H 115 H (98-107) mmol/L Carbon Dioxide 20 L 22 (22-30) mmol/L BUN 50 H 29 H (9-20) mg/dL Creatinine 0.98 1.12 (0.66-1.25) mg/dL Glucose 126 H 108 H (74-99) mg/dL Calcium 8.2 L 8.3 L (8.4-10.2) mg/dL TSH 1.610 (0.465-4.680) mIU/L Adrenal panel 09/22/23 09/23/23 Range/Units 15:13 08:08 Sodium 140 139 (137-145) mmol/L Potassium 4.8 4.2 (3.5-5.1) mmol/L Chloride 115 H 115 H (98-107) mmol/L Carbon Dioxide 20 L 22 (22-30) mmol/L BUN 50 H 29 H (9-20) mg/dL Creatinine 0.98 1.12 (0.66-1.25) mg/dL Glucose 126 H 108 H (74-99) mg/dL Calcium 8.2 L 8.3 L (8.4-10.2) mg/dL Total Bilirubin 1.0 0.6 (0.2-1.3) mg/dL AST 53 55 (17-59) U/L ALT 82 H 72 H (4-49) U/L Alkaline Phosphatase 52 59 (38-126) U/L Total Protein 5.5 L 4.7 L (6.3-8.2) g/dL Albumin 2.7 L 2.4 L (3.5-5.0) g/dL
[2023-09-23 16:03] LABS: LDL Cholesterol,Calculated 20.8 mg/dL (0.0-131.0)
[2023-09-23] MEDS: LOSARTAN 25 MG TAB PO SCH (16:24)
[2023-09-23 16:41] LABS: Glucose,Whole Blood 120 mg/dL (70-110)
[2023-09-23] MEDS: SODIUM CHLORIDE 0.9% 1,000 ML in EMPTY BAG 1 BAG IV SCH (17:04)
[2023-09-23 17:32] LABS: Basophils % (A) 1 %; Eosinophils # (A) 0.1 k/uL (0-0.7); Eosinophils % (A) 2 %; HCT 24.2 % (39.0-53.0); HGB 8.2 gm/dL (13.0-17.5); Lymphocytes # (A) 2.5 k/uL (1.0-4.8); Lymphocytes % (A) 49 %; MCH 32.5 pg (25.0-35.0); MCHC 33.7 g/dL (31.0-37.0); MCV 96.5 fL (80.0-100.0); Monocytes # (A) 0.3 k/uL (0-1.0); Monocytes % (A) 5 %; Neutrophils # (A) 1.9 k/uL (1.3-7.7); Neutrophils % (A) 39 %; Platelet Count 167 k/uL (150-450); RBC 2.51 m/uL (4.30-5.90); RDW 14.5 % (11.5-15.5)
[2023-09-23 20:29] LABS: Glucose,Whole Blood 150 mg/dL (70-110)
[2023-09-23] MEDS: ACETAMINOPHEN TAB 325 MG TAB PO PRN (21:54)
[2023-09-24 00:20] LABS: Basophils % (A) 1 %; Eosinophils # (A) 0.1 k/uL (0-0.7); Eosinophils % (A) 2 %; HGB 7.8 gm/dL (13.0-17.5); Lymphocytes # (A) 3.1 k/uL (1.0-4.8); Lymphocytes % (A) 53 %; MCH 32.4 pg (25.0-35.0); MCV 95.1 fL (80.0-100.0); Mean Platelet Volume 7.3; Monocytes # (A) 0.4 k/uL (0-1.0); Monocytes % (A) 6 %; Neutrophils % (A) 35 %; Platelet Count 170 k/uL (150-450); RBC 2.42 m/uL (4.30-5.90); RDW 14.8 % (11.5-15.5); WBC 5.8 k/uL (3.8-10.6)
[2023-09-24 04:19] LABS: Basophils % (A) 0 %; Eosinophils # (A) 0.1 k/uL (0-0.7); Eosinophils % (A) 2 %; HCT 24.2 % (39.0-53.0); HGB 8.6 gm/dL (13.0-17.5); Lymphocytes # (A) 2.5 k/uL (1.0-4.8); Lymphocytes % (A) 50 %; MCH 33.7 pg (25.0-35.0); MCHC 35.4 g/dL (31.0-37.0); MCV 95.1 fL (80.0-100.0); Mean Platelet Volume 7.1; Monocytes # (A) 0.4 k/uL (0-1.0); Monocytes % (A) 7 %; Neutrophils # (A) 1.9 k/uL (1.3-7.7); Neutrophils % (A) 38 %; Platelet Count 215 k/uL (150-450); RBC 2.55 m/uL (4.30-5.90); RDW 14.9 % (11.5-15.5); WBC 5.1 k/uL (3.8-10.6)
[2023-09-24 06:10] LABS: Glucose,Whole Blood 123 mg/dL (70-110)
[2023-09-24 08:21] LABS: Basophils % (A) 0 %; Eosinophils # (A) 0.1 k/uL (0-0.7); Eosinophils % (A) 3 %; HCT 22.1 % (39.0-53.0); HGB 7.6 gm/dL (13.0-17.5); Lymphocytes # (A) 2.2 k/uL (1.0-4.8); Lymphocytes % (A) 49 %; MCH 33.1 pg (25.0-35.0); MCHC 34.6 g/dL (31.0-37.0); MCV 95.5 fL (80.0-100.0); Mean Platelet Volume 7.3; Monocytes # (A) 0.2 k/uL (0-1.0); Monocytes % (A) 5 %; Neutrophils # (A) 1.7 k/uL (1.3-7.7); Neutrophils % (A) 39 %; Platelet Count 164 k/uL (150-450); RBC 2.31 m/uL (4.30-5.90); WBC 4.4 k/uL (3.8-10.6)
[2023-09-24 08:36] LABS: ALT 68 U/L (4-49); AST 63 U/L (17-59); African American GFR (CKD) >90 (>60 ml/min/1.73 sqM); Albumin 2.4 g/dL (3.5-5.0); Alkaline Phosphatase 61 U/L (38-126); Anion Gap 4 mmol/L; Blood Urea Nitrogen 14 mg/dL (9-20); Calcium 8.3 mg/dL (8.4-10.2); Carbon Dioxide 23 mmol/L (22-30); Chloride 110 mmol/L (98-107); Glucose 109 mg/dL (74-99); Non-African American GFR(CKD) >90 (>60 ml/min/1.73 sqM); Potassium 3.9 mmol/L (3.5-5.1); Sodium 137 mmol/L (137-145); Total Bilirubin 0.6 mg/dL (0.2-1.3); Total Protein 4.9 g/dL (6.3-8.2)
[2023-09-24] MEDS: ASPIRIN 81 MG PO SCH (08:57)
[2023-09-24 11:14] LABS: Glucose,Whole Blood 187 mg/dL (70-110)
[2023-09-24] MEDS ORDERED: ALPRAZolam 0.25 MG TAB PO PRN (12:34)
[2023-09-24] MEDS ORDERED: NITROGLYCERIN SL TABS 0.4 MG TAB SUBLINGUAL PRN (12:34)
[2023-09-24] MEDS ORDERED: ALPRAZolam 0.5 MG TAB PO PRN (12:34)
--- NOTE | 2023-09-24 14:24 | P.PN ---
Subjective HISTORY OF PRESENT ILLNESS: This is a 52-year-old male with a past medical history significant for hypertension, diabetes, ADD, anxiety, depression, PTSD, nicotine dependence, and alcohol abuse. Patient does not follow with a market development trainer. We have been asked to see the patient in consultation for abnormal troponins. Patient examined at the bedside. Patient initially presented to [facility] for weakness, fatigue, and lightheadedness. The patient states he was called by his PCP and told he had elevated liver tests and to go to the ER. The patient was found to have elevated troponins of 0.16 and was started on IV heparin and transferred to [facility]. The patient also had a CTA performed at [facility] which was negative for PE. At the time of examination, the patient denies any chest pain or pressure. He denies any shortness of breath. He states he is supposed to have a stress test performed on an outpatient basis in the near future. * EKG reveals sinus tachycardia with no signs of acute ischemia * Laboratory data: Troponin 0.387. 0.290. * Current home cardiac medications include amlodipine 7.5 mg daily and Catapres 0.1 mg 3 times a day 09/23/2023 Patient examined this morning at the bedside. Patient was started on IV heparin yesterday but he developed dark tarry stools and it was discontinued. He denies chest pain or pressure. Denies SOB. Vital signs are stable. Echo reveals EF 40- 45%. 09/24/2023 Patient examined this morning at the bedside. She currently denies chest pain or pressure. He denies shortness of breath. He denies any further episodes of black stools. Hemoglobin has remained stable. He has been evaluated by general surgery with no plans for endoscopy. PHYSICAL EXAM: VITAL SIGNS: Reviewed. GENERAL: Well-developed in no acute distress. HEENT: Head is normocephalic. Pupils are equal, round. Sclerae anicteric. Mucous membranes of the mouth are moist. Neck supple. No JVD or thyromegaly LUNGS: Respirations even and unlabored. Lungs essentially clear to auscultation bilaterally. HEART: Regular rate and rhythm. S1 and S2 heard. ABDOMEN: Soft. Nondistended. Nontender. EXTREMITIES: Normal range of motion. No clubbing or cyanosis. Peripheral pulses intact. No lower extremity edema NEUROLOGIC: Awake and alert. Oriented x 3. ASSESSMENT: Generalized weakness Lightheadedness Non-STEMI Cardiomyopathy, ischemic versus nonischemic Mildly elevated LFTs Hypertension Diabetes ADD Anxiety Depression PTSD Nicotine dependence Alcohol abuse, patient drinks 1 pint per day Marijuana use Anemia with black tarry stools PLAN: IV Heparin discontinued due to dark stools yesterday. Monitor hemoglobin Continue current cardiac medications General surgery consulted with no plans for endoscopy Recommend abstinence from alcohol, marijuana, and smoking cessation Nothing by mouth at midnight. Patient to undergo cardiac catheterization tomorrow with Dr. Gallegos if hemoglobin remains stable Further recommendations pending patient's course Nurse practitioner note has been reviewed by physician. Signing provider agrees with the documented findings, assessment, and plan of care. Objective - Vital Signs Vital signs: Vital Signs Temp 98.7 F 09/23/23 19:44 Pulse 85 09/24/23 03:18 Resp 16 09/24/23 03:18 BP 123/75 09/24/23 03:18 Pulse Ox 97 09/24/23 03:18 FiO2 Intake & Output 09/23/23 09/24/23 09/24/23 18:59 06:59 18:59 Intake Total 1234 Output Total 1350 450 Balance -116 -450 Weight 108.862 kg Intake: Oral 942 Blood Product 292 Rc Pheresis 2 As3 Unit 292 [id number] Output: Urine 1350 450 - Labs CBC & Chem 7: 09/24/23 07:58 09/24/23 07:58 Labs: Abnormal Lab Results - Last 24 Hours (Table) 09/23/23 09/23/23 09/23/23 Range/Units 08:08 08:08 08:08 RBC 2.29 L (4.30-5.90) m/uL Hgb 7.4 L (13.0-17.5) gm/dL Hct 22.3 L (39.0-53.0) % Chloride 115 H (98-107) mmol/L BUN 29 H (9-20) mg/dL Glucose 108 H (74-99) mg/dL POC Glucose (mg/dL) (70-110) mg/dL Hemoglobin A1c 6.7 H (<=6.0) % Calcium 8.3 L (8.4-10.2) mg/dL ALT 72 H (4-49) U/L Total Protein 4.7 L (6.3-8.2) g/dL Albumin 2.4 L (3.5-5.0) g/dL Triglycerides 329.00 H (0.00-149.00) mg/dL VLDL Cholesterol, Calc 65.80 H (5.00-40.00) mg/dL Crossmatch 09/23/23 09/23/23 09/23/23 Range/Units 11:12 11:53 16:40 RBC (4.30-5.90) m/uL Hgb (13.0-17.5) gm/dL Hct (39.0-53.0) % Chloride (98-107) mmol/L BUN (9-20) mg/dL Glucose (74-99) mg/dL POC Glucose (mg/dL) 174 H 120 H (70-110) mg/dL Hemoglobin A1c (<=6.0) % Calcium (8.4-10.2) mg/dL ALT (4-49) U/L Total Protein (6.3-8.2) g/dL Albumin (3.5-5.0) g/dL Triglycerides (0.00-149.00) mg/dL VLDL Cholesterol, Calc (5.00-40.00) mg/dL Crossmatch See Detail 09/23/23 09/23/23 09/23/23 Range/Units 17:12 20:28 23:41 RBC 2.51 L 2.42 L (4.30-5.90) m/uL Hgb 8.2 L 7.8 L (13.0-17.5) gm/dL Hct 24.2 L 23.0 L (39.0-53.0) % Chloride (98-107) mmol/L BUN (9-20) mg/dL Glucose (74-99) mg/dL POC Glucose (mg/dL) 150 H (70-110) mg/dL Hemoglobin A1c (<=6.0) % Calcium (8.4-10.2) mg/dL ALT (4-49) U/L Total Protein (6.3-8.2) g/dL Albumin (3.5-5.0) g/dL Triglycerides (0.00-149.00) mg/dL VLDL Cholesterol, Calc (5.00-40.00) mg/dL Crossmatch 09/24/23 09/24/23 09/24/23 Range/Units 02:44 05:54 07:58 RBC 2.55 L 2.31 L (4.30-5.90) m/uL Hgb 8.6 L 7.6 L (13.0-17.5) gm/dL Hct 24.2 L 22.1 L (39.0-53.0) % Chloride (98-107) mmol/L BUN (9-20) mg/dL Glucose (74-99) mg/dL POC Glucose (mg/dL) 123 H (70-110) mg/dL Hemoglobin A1c (<=6.0) % Calcium (8.4-10.2) mg/dL ALT (4-49) U/L Total Protein (6.3-8.2) g/dL Albumin (3.5-5.0) g/dL Triglycerides (0.00-149.00) mg/dL VLDL Cholesterol, Calc (5.00-40.00) mg/dL Crossmatch
--- NOTE | 2023-09-24 15:04 | P.PN ---
Subjective Progress Note Date: 09/24/23 CHIEF COMPLAINT: Fatigue and weakness HISTORY OF PRESENT ILLNESS: Surgical service following regards to GI bleed. Patient had one black stool yesterday. He's had no further black stools. He denies any abdominal pain. Denies any nausea or vomiting. Hemoglobin did drop from 8.6-7.6 patient did receive 1 unit of blood yesterday. Patient is currently off of blood thinners. Patient follow up with cardiology for non- STEMI. They're planning for heart catheterization tomorrow. PHYSICAL EXAM: VITAL SIGNS: Reviewed. GENERAL: Well-developed in no acute distress. ABDOMEN: Soft. Nondistended. Nontender. NEUROLOGIC: Alert and oriented. Cranial nerves II through XII grossly intact. ASSESSMENT: 1. Acute GI bleed with black stools after starting IV heparin 2. Anemia 3. Non-ST elevated GA followed by cardiology PLAN: -No plans for inpatient endoscopy -Recommend EGD outpatient -Continue to monitor hemoglobin -Continue to monitor for any signs or symptoms of bleeding -Continue IV Protonix Physician Outer Diameter Grinder Tool note has been reviewed by physician. Signing provider agrees with the documented findings, assessment, and plan of care. Objective - Vital Signs Vital signs: Vital Signs Temp 98.1 F 09/24/23 11:57 Pulse 83 09/24/23 11:57 Resp 18 09/24/23 11:57 BP 113/69 09/24/23 11:57 Pulse Ox 98 09/24/23 11:57 FiO2 Intake & Output 09/23/23 09/24/23 09/24/23 18:59 06:59 18:59 Intake Total 1234 Output Total 1350 450 Balance -116 -450 Weight 108.862 kg Intake: Oral 942 Blood Product 292 Rc Pheresis 2 As3 Unit 292 [id number] Output: Urine 1350 450 - Labs CBC & Chem 7: 09/24/23 07:58 09/24/23 07:58 Labs: Abnormal Lab Results - Last 24 Hours (Table) 09/23/23 09/23/23 09/23/23 Range/Units 08:08 08:08 11:12 RBC (4.30-5.90) m/uL Hgb (13.0-17.5) gm/dL Hct (39.0-53.0) % Chloride (98-107) mmol/L Glucose (74-99) mg/dL POC Glucose (mg/dL) (70-110) mg/dL Hemoglobin A1c 6.7 H (<=6.0) % Calcium (8.4-10.2) mg/dL AST (17-59) U/L ALT (4-49) U/L Total Protein (6.3-8.2) g/dL Albumin (3.5-5.0) g/dL Triglycerides 329.00 H (0.00-149.00) mg/dL VLDL Cholesterol, Calc 65.80 H (5.00-40.00) mg/dL Crossmatch See Detail 09/23/23 09/23/23 09/23/23 Range/Units 16:40 17:12 20:28 RBC 2.51 L (4.30-5.90) m/uL Hgb 8.2 L (13.0-17.5) gm/dL Hct 24.2 L (39.0-53.0) % Chloride (98-107) mmol/L Glucose (74-99) mg/dL POC Glucose (mg/dL) 120 H 150 H (70-110) mg/dL Hemoglobin A1c (<=6.0) % Calcium (8.4-10.2) mg/dL AST (17-59) U/L ALT (4-49) U/L Total Protein (6.3-8.2) g/dL Albumin (3.5-5.0) g/dL Triglycerides (0.00-149.00) mg/dL VLDL Cholesterol, Calc (5.00-40.00) mg/dL Crossmatch 09/23/23 09/24/23 09/24/23 Range/Units 23:41 02:44 05:54 RBC 2.42 L 2.55 L (4.30-5.90) m/uL Hgb 7.8 L 8.6 L (13.0-17.5) gm/dL Hct 23.0 L 24.2 L (39.0-53.0) % Chloride (98-107) mmol/L Glucose (74-99) mg/dL POC Glucose (mg/dL) 123 H (70-110) mg/dL Hemoglobin A1c (<=6.0) % Calcium (8.4-10.2) mg/dL AST (17-59) U/L ALT (4-49) U/L Total Protein (6.3-8.2) g/dL Albumin (3.5-5.0) g/dL Triglycerides (0.00-149.00) mg/dL VLDL Cholesterol, Calc (5.00-40.00) mg/dL Crossmatch 09/24/23 09/24/23 09/24/23 Range/Units 07:58 07:58 11:12 RBC 2.31 L (4.30-5.90) m/uL Hgb 7.6 L (13.0-17.5) gm/dL Hct 22.1 L (39.0-53.0) % Chloride 110 H (98-107) mmol/L Glucose 109 H (74-99) mg/dL POC Glucose (mg/dL) 187 H (70-110) mg/dL Hemoglobin A1c (<=6.0) % Calcium 8.3 L (8.4-10.2) mg/dL AST 63 H (17-59) U/L ALT 68 H (4-49) U/L Total Protein 4.9 L (6.3-8.2) g/dL Albumin 2.4 L (3.5-5.0) g/dL Triglycerides (0.00-149.00) mg/dL VLDL Cholesterol, Calc (5.00-40.00) mg/dL Crossmatch
--- NOTE | 2023-09-24 15:15 | P.PN ---
Subjective Progress Note Date: 09/24/23 patient is a 52-year-old gentleman with past medical history significant for hypertension, diabetes mellitus, depression who is a transfer from [facility] for elevated troponins. Patient stated was all right one week back when he started noticing that he was getting short of breath on exertion. Patient stated that he was very weak, unable to stand straight. Patient stated that he was hurting all over the body. Because of these symptoms, patient went to his PCP who ran some blood work . Later his PCP told him to, immediately come to the ER so patient went to [facility]. Patient noticed that he was getting short of breath on rest as well as exertion. Denied any chest pain. There was no complain of any nausea, vomiting or abdominal pain. Because of these symptoms, patient was worked up at [facility], troponin was elevated . CTA chest done was negative for any PE. Patient started on pharmacy dose heparin and was transferred to [facility] 09/23. Patient seen and examined. Patient had couple of episodes of black tarry stools yesterday, hemoglobin also dropped to 8 last night and 7.4 this morning. No further episodes of blood or dark colored stools. no complaint hematemesis. Denies any abdominal pain. Currently on clear liquid diet 09/24. Patient seen and examined. Hemoglobin remained stable. General surgery following, don't recommend inpatient EGD. REVIEW OF SYSTEMS: CONSTITUTIONAL: No fever, no malaise,. CARDIOVASCULAR: No chest pain, no palpitations, no syncope. PULMONARY: No shortness of breath, no cough, GASTROINTESTINAL: As mentioned above NEUROLOGICAL: No headaches, no weakness, PHYSICAL EXAMINATION: GENERAL: The patient is alert and oriented x3, not in any acute distress. Well developed, well nourished. HEENT: Pupils are round and equally reacting to light. EOMI. No scleral icterus. No conjunctival pallor. Normocephalic, atraumatic. No pharyngeal erythema. No thyromegaly. CARDIOVASCULAR: S1 and S2 present. No murmurs, rubs, or gallops. PULMONARY: Chest is clear to auscultation, no wheezing or crackles. ABDOMEN: Soft, nontender, nondistended, normoactive bowel sounds. No palpable organomegaly. MUSCULOSKELETAL: No joint swelling or deformity. EXTREMITIES: No cyanosis, clubbing, or pedal edema. NEUROLOGICAL: Gross neurological examination did not reveal any focal deficits. SKIN: No rashes. Assessment and plan Non-ST elevation OK Black tarry stools Acute blood loss anemia Hypertension [id number] diabetes mellitus ADD Anxiety Depression PTSD Nicotine dependence Alcohol abuse, patient drinks 1 pint per day Marijuana use Monitor vital signs Monitor CBC Monitor CMP Continue telemetry monitoring Hold pharmacy dose heparin secondary to black tarry stools Continue IV Protonix Continue CIWA protocol Continue thiamine and folic acid Cardiology following Gen. surgery consulted , no GI coverage available at this time, not planning EGD at this time Labs and medication were reviewed.. Continue same treatment. Continue with symptomatic treatment. Resume home medication. Monitor labs and vitals. DVT and GI prophylaxis. Further recommendations as per clinical course of the patient Dictation was produced using [employer] dictation software. please excuse any grammatical, word or spelling errors. Objective - Vital Signs Vital signs: Vital Signs Temp 98.1 F 09/24/23 11:57 Pulse 83 09/24/23 11:57 Resp 16 09/24/23 14:00 BP 113/69 09/24/23 11:57 Pulse Ox 98 09/24/23 11:57 FiO2 Intake & Output 09/23/23 09/24/23 09/24/23 18:59 06:59 18:59 Intake Total 1234 Output Total 1350 450 Balance -116 -450 Weight 108.862 kg Intake: Oral 942 Blood Product 292 Rc Pheresis 2 As3 Unit 292 [id number] Output: Urine 1350 450 Other: # Voids 1 - Labs CBC & Chem 7: 09/24/23 07:58 09/24/23 07:58 Labs: Abnormal Lab Results - Last 24 Hours (Table) 09/23/23 09/23/23 09/23/23 Range/Units 08:08 08:08 11:12 RBC (4.30-5.90) m/uL Hgb (13.0-17.5) gm/dL Hct (39.0-53.0) % Chloride (98-107) mmol/L Glucose (74-99) mg/dL POC Glucose (mg/dL) (70-110) mg/dL Hemoglobin A1c 6.7 H (<=6.0) % Calcium (8.4-10.2) mg/dL AST (17-59) U/L ALT (4-49) U/L Total Protein (6.3-8.2) g/dL Albumin (3.5-5.0) g/dL Triglycerides 329.00 H (0.00-149.00) mg/dL VLDL Cholesterol, Calc 65.80 H (5.00-40.00) mg/dL Crossmatch See Detail 09/23/23 09/23/23 09/23/23 Range/Units 16:40 17:12 20:28 RBC 2.51 L (4.30-5.90) m/uL Hgb 8.2 L (13.0-17.5) gm/dL Hct 24.2 L (39.0-53.0) % Chloride (98-107) mmol/L Glucose (74-99) mg/dL POC Glucose (mg/dL) 120 H 150 H (70-110) mg/dL Hemoglobin A1c (<=6.0) % Calcium (8.4-10.2) mg/dL AST (17-59) U/L ALT (4-49) U/L Total Protein (6.3-8.2) g/dL Albumin (3.5-5.0) g/dL Triglycerides (0.00-149.00) mg/dL VLDL Cholesterol, Calc (5.00-40.00) mg/dL Crossmatch 09/23/23 09/24/23 09/24/23 Range/Units 23:41 02:44 05:54 RBC 2.42 L 2.55 L (4.30-5.90) m/uL Hgb 7.8 L 8.6 L (13.0-17.5) gm/dL Hct 23.0 L 24.2 L (39.0-53.0) % Chloride (98-107) mmol/L Glucose (74-99) mg/dL POC Glucose (mg/dL) 123 H (70-110) mg/dL Hemoglobin A1c (<=6.0) % Calcium (8.4-10.2) mg/dL AST (17-59) U/L ALT (4-49) U/L Total Protein (6.3-8.2) g/dL Albumin (3.5-5.0) g/dL Triglycerides (0.00-149.00) mg/dL VLDL Cholesterol, Calc (5.00-40.00) mg/dL Crossmatch 09/24/23 09/24/23 09/24/23 Range/Units 07:58 07:58 11:12 RBC 2.31 L (4.30-5.90) m/uL Hgb 7.6 L (13.0-17.5) gm/dL Hct 22.1 L (39.0-53.0) % Chloride 110 H (98-107) mmol/L Glucose 109 H (74-99) mg/dL POC Glucose (mg/dL) 187 H (70-110) mg/dL Hemoglobin A1c (<=6.0) % Calcium 8.3 L (8.4-10.2) mg/dL AST 63 H (17-59) U/L ALT 68 H (4-49) U/L Total Protein 4.9 L (6.3-8.2) g/dL Albumin 2.4 L (3.5-5.0) g/dL Triglycerides (0.00-149.00) mg/dL VLDL Cholesterol, Calc (5.00-40.00) mg/dL Crossmatch
[2023-09-24 16:28] LABS: Glucose,Whole Blood 114 mg/dL (70-110)
[2023-09-24 20:00] LABS: Glucose,Whole Blood 154 mg/dL (70-110)
[2023-09-25] MEDS: SODIUM CHLORIDE 0.9% 1,000 ML in EMPTY BAG 1 BAG IV SCH (00:46)
[2023-09-25 06:04] LABS: Glucose,Whole Blood 161 mg/dL (70-110)
[2023-09-25] MEDS: ASPIRIN 325 MG TAB PO ONE (06:16)
[2023-09-25] MEDS: ATORVASTATIN 80 MG TAB PO ONE (06:16)
[2023-09-25] MEDS ORDERED: HEPARIN SODIUM,PORCINE (1 ML) 2,500 UNIT in SODIUM CHLORIDE 0.9% 250 ML IRRIGATION PRN (07:00)
[2023-09-25] MEDS ORDERED: HEPARIN SODIUM,PORCINE 10,000 UNIT in SODIUM CHLORIDE 0.9% 1,000 ML IRRIGATION PRN (07:00)
[2023-09-25 08:37] LABS: Basophils % (A) 1 %; Eosinophils # (A) 0.1 k/uL (0-0.7); Eosinophils % (A) 2 %; HCT 23.7 % (39.0-53.0); HGB 8.2 gm/dL (13.0-17.5); Lymphocytes # (A) 1.9 k/uL (1.0-4.8); Lymphocytes % (A) 35 %; MCH 33.1 pg (25.0-35.0); MCHC 34.5 g/dL (31.0-37.0); MCV 95.9 fL (80.0-100.0); Mean Platelet Volume 7.5; Monocytes # (A) 0.3 k/uL (0-1.0); Monocytes % (A) 5 %; Neutrophils # (A) 2.9 k/uL (1.3-7.7); Neutrophils % (A) 53 %; Platelet Count 202 k/uL (150-450); RBC 2.47 m/uL (4.30-5.90); RDW 15.4 % (11.5-15.5); WBC 5.4 k/uL (3.8-10.6)
[2023-09-25 08:53] LABS: ALT 70 U/L (4-49); AST 68 U/L (17-59); African American GFR (CKD) >90 (>60 ml/min/1.73 sqM); Albumin 2.6 g/dL (3.5-5.0); Alkaline Phosphatase 68 U/L (38-126); Anion Gap 3 mmol/L; Blood Urea Nitrogen 7 mg/dL (9-20); Calcium 8.4 mg/dL (8.4-10.2); Carbon Dioxide 25 mmol/L (22-30); Chloride 110 mmol/L (98-107); Glucose 114 mg/dL (74-99); Non-African American GFR(CKD) >90 (>60 ml/min/1.73 sqM); Potassium 3.9 mmol/L (3.5-5.1); Sodium 138 mmol/L (137-145); Total Bilirubin 0.6 mg/dL (0.2-1.3); Total Protein 5.1 g/dL (6.3-8.2)
[2023-09-25] MEDS: IV FLUID CONTINUATION 1,000 ML IV ONE (09:16)
[2023-09-25] MEDS ORDERED: VERAPAMIL 2.5 MG/ML 2 ML AMP ONE (09:23)
[2023-09-25] MEDS ORDERED: fentaNYL (PF) 50 MCG/ML 2 ML AMP ONE (09:23)
[2023-09-25] MEDS ORDERED: LIDOCAINE 1% INJ 10MG/ML (20 ML MDV) ONE (09:23)
[2023-09-25] MEDS: fentaNYL (PF) 50 MCG/ML 2 ML AMP IVP ONE (10:03)
[2023-09-25] MEDS: MIDAZOLAM 2 MG/2 ML VIAL IVP ONE (10:03)
[2023-09-25] MEDS: LIDOCAINE 1% INJ 10MG/ML (20 ML MDV) SQ ONE (10:07)
[2023-09-25] MEDS: NITROGLYCERIN 1000MCG/10ML SYRINGE INTRACORON ONE (10:16)
[2023-09-25] MEDS: IOPAMIDOL-370 100ML BTL INJ ONE (10:21)
--- NOTE | 2023-09-25 10:33 | P.CARDCATH ---
Description of Procedure: PROCEDURES PERFORMED: Left heart catheterization, bilateral coronary angiography, ultrasound guided arterial access INDICATION: Non-STEMI CONSENT:I have discussed the risks, benefits and alternative therapies for the above-mentioned procedure and for both sedation/analgesia as well as necessary blood product administration, if indicated, as they pertain to this patient. The patient has indicated understanding and acceptance of the risks and procedures discussed. PROCEDURE: After the risks, benefits and alternatives of the above mentioned procedure explained in detail with the patient, informed consent was obtained. Patient was taken to the catheterization lab and prepped and draped in usual fashion. Ultrasound guidance was used to assess for arterial access. 1% lidocaine was used to anesthetize the right femoral artery. Femoral axis was obtained as patient has GI bleeding and no anticoagulation was used. A 6-Estonian sheath was placed in the right femoral artery using modified Seldinger technique and ultrasound guidance. Left coronary angiography was performed with a 6- Estonian JL 4.0 catheter and right coronary angiography was performed with a 6- Estonian FR4 catheter in various views. A 6-Estonian FR4 catheter was inserted into the left ventricle and pressure measurements were obtained. The right femoral angiogram showed adequate anatomy for closure. A 6-Estonian Angio-Seal was placed with hemostasis achieved. The patient tolerated the procedure well. Patient was transported back to the post catheterization holding area in stable condition. Conscious Sedation: Patient was monitored under the direct supervision of myself for conscious sedation using Versed and fentanyl for a total duration of 14 minutes HEMODYNAMICS: Aorta: 122/78 LV: 110/1, LVEDP 3 SELECTIVE CORONARY ARTERIOGRAPHY: LEFT MAIN: The left main is a large caliber vessel which bifurcates into the LAD and circumflex. There is no significant stenosis. LEFT ANTERIOR DESCENDING CORONARY ARTERY: LAD is a large caliber vessel which wraps around to the apex. There is mid LAD 40% tandem stenoses and otherwise normal. LEFT CIRCUMFLEX CORONARY ARTERY: Left circumflex is a moderate caliber vessel without significant stenosis. RIGHT CORONARY ARTERY: The right coronary artery is a large caliber vessel which gives off a PDA and PLV branch and is the dominant vessel. There is no significant stenosis. FINAL IMPRESSION: 1. Relatively normal coronary arteries other then mid LAD 40% stenoses. 2. Low left sided filling pressures 3. Recent GI bleeding, melena PLAN: 1. Aggressive risk factor modification per most recent ACC/AHA guidelines. 2. Non-STEMI does not appear related to significant coronary artery disease and may be related to GI bleed. Further evaluation of GI bleed.
[2023-09-25 11:25] LABS: Glucose,Whole Blood 97 mg/dL (70-110)
[2023-09-25] MEDS: HYDROcodone/APAP 5-325MG 1 EACH TAB PO PRN (11:53)
--- NOTE | 2023-09-25 12:59 | P.PN ---
Subjective Progress Note Date: 09/25/23 CHIEF COMPLAINT: Fatigue and weakness HISTORY OF PRESENT ILLNESS: Surgical service following regards to GI bleed. Patient had heart cath completed today. He denies any abdominal pain. Denies any further black stools. Hemoglobin stable at 8.2 PHYSICAL EXAM: VITAL SIGNS: Reviewed. GENERAL: Well-developed in no acute distress. ABDOMEN: Soft. Nondistended. Nontender. NEUROLOGIC: Alert and oriented. Cranial nerves II through XII grossly intact. ASSESSMENT: 1. Acute GI bleed with black stools after starting IV heparin. Now resolved 2. Anemia 3. Non-ST elevated AL followed by cardiology 4. Alcohol abuse PLAN: -Patient can be discharged from surgical standpoint -Recommend EGD outpatient -Continue Protonix at discharge -Discussed abstaining from alcohol use Physician Weatherization Operations Manager note has been reviewed by physician. Signing provider agrees with the documented findings, assessment, and plan of care. Objective - Vital Signs Vital signs: Vital Signs Temp 97.9 F 09/25/23 10:50 Pulse 83 09/25/23 11:35 Resp 18 09/25/23 11:35 BP 134/88 09/25/23 11:35 Pulse Ox 99 09/25/23 10:50 FiO2 Intake & Output 09/24/23 09/25/23 09/25/23 18:59 06:59 18:59 Intake Total 435.448 200 Output Total 975 400 Balance -539.552 -200 Intake: IV 200 Intake, IV Titration 435.448 Amount Sodium Chloride 0.9% 1, 435.448 000 ml In Empty Bag 1 bag @ 1 ML/KG/HR 108.862 mls /hr IV .[id number] [facility] Rx#: [id number] Output: Urine 975 400 Other: # Voids 1 1 - Labs CBC & Chem 7: 09/25/23 07:51 09/25/23 07:51 Labs: Abnormal Lab Results - Last 24 Hours (Table) 09/24/23 09/24/23 09/25/23 Range/Units 16:26 19:58 05:59 RBC (4.30-5.90) m/uL Hgb (13.0-17.5) gm/dL Hct (39.0-53.0) % Chloride (98-107) mmol/L BUN (9-20) mg/dL Glucose (74-99) mg/dL POC Glucose (mg/dL) 114 H 154 H 161 H (70-110) mg/dL AST (17-59) U/L ALT (4-49) U/L Total Protein (6.3-8.2) g/dL Albumin (3.5-5.0) g/dL 09/25/23 09/25/23 Range/Units 07:51 07:51 RBC 2.47 L (4.30-5.90) m/uL Hgb 8.2 L (13.0-17.5) gm/dL Hct 23.7 L (39.0-53.0) % Chloride 110 H (98-107) mmol/L BUN 7 L (9-20) mg/dL Glucose 114 H (74-99) mg/dL POC Glucose (mg/dL) (70-110) mg/dL AST 68 H (17-59) U/L ALT 70 H (4-49) U/L Total Protein 5.1 L (6.3-8.2) g/dL Albumin 2.6 L (3.5-5.0) g/dL
--- NOTE | 2023-09-25 13:26 | P.PN ---
Subjective Progress Note Date: 09/25/23 patient is a 52-year-old gentleman with past medical history significant for hypertension, diabetes mellitus, depression who is a transfer from [facility] for elevated troponins. Patient stated was all right one week back when he started noticing that he was getting short of breath on exertion. Patient stated that he was very weak, unable to stand straight. Patient stated that he was hurting all over the body. Because of these symptoms, patient went to his PCP who ran some blood work . Later his PCP told him to, immediately come to the ER so patient went to [facility]. Patient noticed that he was getting short of breath on rest as well as exertion. Denied any chest pain. There was no complain of any nausea, vomiting or abdominal pain. Because of these symptoms, patient was worked up at [facility], troponin was elevated . CTA chest done was negative for any PE. Patient started on pharmacy dose heparin and was transferred to [facility] 09/23. Patient seen and examined. Patient had couple of episodes of black tarry stools yesterday, hemoglobin also dropped to 8 last night and 7.4 this morning. No further episodes of blood or dark colored stools. no complaint hematemesis. Denies any abdominal pain. Currently on clear liquid diet 09/24. Patient seen and examined. Hemoglobin remained stable. General surgery following, don't recommend inpatient EGD. 09/25. Patient seen and examined. Hemoglobin this morning is 8.2. No evidence of any blood in stools. Currently nothing by mouth, going for cardiac catheter today REVIEW OF SYSTEMS: CONSTITUTIONAL: No fever, no malaise,. CARDIOVASCULAR: No chest pain, no palpitations, no syncope. PULMONARY: No shortness of breath, no cough, GASTROINTESTINAL: As mentioned above NEUROLOGICAL: No headaches, no weakness, PHYSICAL EXAMINATION: GENERAL: The patient is alert and oriented x3, not in any acute distress. Well developed, well nourished. HEENT: Pupils are round and equally reacting to light. EOMI. No scleral icterus. No conjunctival pallor. Normocephalic, atraumatic. No pharyngeal erythema. No thyromegaly. CARDIOVASCULAR: S1 and S2 present. No murmurs, rubs, or gallops. PULMONARY: Chest is clear to auscultation, no wheezing or crackles. ABDOMEN: Soft, nontender, nondistended, normoactive bowel sounds. No palpable organomegaly. MUSCULOSKELETAL: No joint swelling or deformity. EXTREMITIES: No cyanosis, clubbing, or pedal edema. NEUROLOGICAL: Gross neurological examination did not reveal any focal deficits. SKIN: No rashes. Assessment and plan Non-ST elevation [place] Black tarry stools Acute blood loss anemia Hypertension Hge-qcorkyh-rqpfbngla diabetes mellitus ADD Anxiety Depression PTSD Nicotine dependence Alcohol abuse, patient drinks 1 pint per day Marijuana use Monitor vital signs Monitor CBC Monitor CMP Continue telemetry monitoring Continue IV Protonix Continue CIWA protocol Continue thiamine and folic acid Cardiology following, planning cardiac catheterization Gen. surgery consulted , no GI coverage available at this time, not planning EGD at this time Labs and medication were reviewed.. Continue same treatment. Continue with symptomatic treatment. Resume home medication. Monitor labs and vitals. DVT and GI prophylaxis. Further recommendations as per clinical course of the patient Dictation was produced using [employer] dictation software. please excuse any grammatical, word or spelling errors. Objective - Vital Signs Vital signs: Vital Signs Temp 98.9 F 09/25/23 08:30 Pulse 86 09/25/23 08:30 Resp 18 09/25/23 08:30 BP 119/72 09/25/23 08:30 Pulse Ox 100 09/25/23 08:30 FiO2 Intake & Output 09/24/23 09/25/23 09/25/23 18:59 06:59 18:59 Intake Total 435.448 Output Total 975 Balance -539.552 Intake: Intake, IV Titration 435.448 Amount Sodium Chloride 0.9% 1, 435.448 000 ml In Empty Bag 1 bag @ 1 ML/KG/HR 108.862 mls /hr IV .[id number] [facility] Rx#: [id number] Output: Urine 975 Other: # Voids 1 1 - Labs CBC & Chem 7: 09/25/23 07:51 09/25/23 07:51 Labs: Abnormal Lab Results - Last 24 Hours (Table) 09/24/23 09/24/23 09/24/23 Range/Units 11:12 16:26 19:58 RBC (4.30-5.90) m/uL Hgb (13.0-17.5) gm/dL Hct (39.0-53.0) % Chloride (98-107) mmol/L BUN (9-20) mg/dL Glucose (74-99) mg/dL POC Glucose (mg/dL) 187 H 114 H 154 H (70-110) mg/dL AST (17-59) U/L ALT (4-49) U/L Total Protein (6.3-8.2) g/dL Albumin (3.5-5.0) g/dL 09/25/23 09/25/23 09/25/23 Range/Units 05:59 07:51 07:51 RBC 2.47 L (4.30-5.90) m/uL Hgb 8.2 L (13.0-17.5) gm/dL Hct 23.7 L (39.0-53.0) % Chloride 110 H (98-107) mmol/L BUN 7 L (9-20) mg/dL Glucose 114 H (74-99) mg/dL POC Glucose (mg/dL) 161 H (70-110) mg/dL AST 68 H (17-59) U/L ALT 70 H (4-49) U/L Total Protein 5.1 L (6.3-8.2) g/dL Albumin 2.6 L (3.5-5.0) g/dL
[2023-09-25 16:52] LABS: Glucose,Whole Blood 131 mg/dL (70-110)
[2023-09-25 20:04] LABS: Glucose,Whole Blood 140 mg/dL (70-110)
[2023-09-26 04:51] VITALS: RESP 18
[2023-09-26 06:07] LABS: Glucose,Whole Blood 158 mg/dL (70-110)
[2023-09-26 07:39] LABS: HCT 22.9 % (39.0-53.0); HGB 7.7 gm/dL (13.0-17.5); MCH 32.2 pg (25.0-35.0); MCHC 33.6 g/dL (31.0-37.0); MCV 95.7 fL (80.0-100.0); Mean Platelet Volume 7.7; Platelet Count 245 k/uL (150-450); RBC 2.39 m/uL (4.30-5.90); RDW 15.9 % (11.5-15.5); WBC 7.4 k/uL (3.8-10.6)
[2023-09-26] MEDS: ASPIRIN 81 MG PO SCH (08:21)
[2023-09-26 08:31] LABS: ALT 60 U/L (4-49); AST 56 U/L (17-59); African American GFR (CKD) >90 (>60 ml/min/1.73 sqM); Albumin 2.7 g/dL (3.5-5.0); Alkaline Phosphatase 111 U/L (38-126); Anion Gap 5 mmol/L; Blood Urea Nitrogen 8 mg/dL (9-20); Calcium 8.7 mg/dL (8.4-10.2); Carbon Dioxide 23 mmol/L (22-30); Chloride 108 mmol/L (98-107); Glucose 117 mg/dL (74-99); Non-African American GFR(CKD) >90 (>60 ml/min/1.73 sqM); Sodium 136 mmol/L (137-145); Total Bilirubin 0.3 mg/dL (0.2-1.3); Total Protein 5.3 g/dL (6.3-8.2)
[2023-09-26 10:09] VITALS: BP 126/73; PULSE 89; TEMP 98.4
--- NOTE | 2023-09-26 11:44 | P.PN ---
Progress Note - Text Progress Note Date: 09/26/23 CHIEF COMPLAINT: Fatigue and weakness HISTORY OF PRESENT ILLNESS: Surgical service following regards to GI bleed. He denies any abdominal pain. Denies any further black stools. Hemoglobin stable PHYSICAL EXAM: VITAL SIGNS: Reviewed. GENERAL: Well-developed in no acute distress. ABDOMEN: Soft. Nondistended. Nontender. NEUROLOGIC: Alert and oriented. Cranial nerves II through XII grossly intact. ASSESSMENT: 1. Acute GI bleed with black stools after starting IV heparin. Now resolved 2. Anemia 3. Non-ST elevated WA followed by cardiology 4. Alcohol abuse PLAN: -Patient can be discharged from surgical standpoint -Recommend EGD outpatient -Continue Protonix at discharge -Discussed abstaining from alcohol use
--- NOTE | 2023-09-26 12:28 | P.DS ---
Providers Date of admission: 09/22/23 01:01 Expected date of discharge: 09/26/23 Attending physician: Winsome Mccurdy Consults: 09/22/23 01:01 Consult Physician Routine Consulting Provider: Jorge Cantu Consult Reason/Comments: NSTEMI Do you want consulting provider notified?: Yes 09/22/23 16:02 Consult Physician Routine Consulting Provider: Morris Stark Consult Reason/Comments: GI Bleed Do you want consulting provider notified?: Yes Primary care physician: Mary Deluca MD Hospital Course: Discharge diagnoses; Non-ST elevation [place] Black tarry stools Acute blood loss anemia Hypertension Wkr-[id number] diabetes mellitus ADD Anxiety Depression PTSD Nicotine dependence Alcohol abuse, patient drinks 1 pint per day Marijuana use Hospital course; patient is a 52-year-old gentleman with past medical history significant for hypertension, diabetes mellitus, depression who is a transfer from [facility] for elevated troponins. Patient stated was all right one week back when he started noticing that he was getting short of breath on exertion. Patient stated that he was very weak, unable to stand straight. Patient stated that he was hurting all over the body. Because of these symptoms, patient went to his PCP who ran some blood work . Later his PCP told him to, immediately come to the ER so patient went to [facility]. Patient noticed that he was getting short of breath on rest as well as exertion. Denied any chest pain. There was no complain of any nausea, vomiting or abdominal pain. Because of these symptoms, patient was worked up at [facility], troponin was elevated . CTA chest done was negative for any PE. Patient started on pharmacy dose heparin and was transferred to [facility] 09/23. Patient seen and examined. Patient had couple of episodes of black tarry stools yesterday, hemoglobin also dropped to 8 last night and 7.4 this morning. No further episodes of blood or dark colored stools. no complaint hematemesis. Denies any abdominal pain. Currently on clear liquid diet 09/24. Patient seen and examined. Hemoglobin remained stable. General surgery following, don't recommend inpatient EGD. 09/25. Patient seen and examined. Hemoglobin this morning is 8.2. No evidence of any blood in stools. Currently nothing by mouth, going for cardiac catheter today 09/26. Patient seen and examined. Cardiac cath done yesterday showed Relatively normal coronary arteries other then mid LAD 40% stenoses. Low left sided filling pressures. Cardiology recommended aggressive risk factor modification. Surgery recommend outpatient follow-up for EGD PHYSICAL EXAMINATION: GENERAL: The patient is alert and oriented x3, not in any acute distress. Well developed, well nourished. HEENT: Pupils are round and equally reacting to light. EOMI. No scleral icterus. No conjunctival pallor. Normocephalic, atraumatic. No pharyngeal erythema. No thyromegaly. CARDIOVASCULAR: S1 and S2 present. No murmurs, rubs, or gallops. PULMONARY: Chest is clear to auscultation, no wheezing or crackles. ABDOMEN: Soft, nontender, nondistended, normoactive bowel sounds. No palpable organomegaly. MUSCULOSKELETAL: No joint swelling or deformity. EXTREMITIES: No cyanosis, clubbing, or pedal edema. NEUROLOGICAL: Gross neurological examination did not reveal any focal deficits. SKIN: No rashes. Dictation was produced using [employer] dictation software. please excuse any grammatical, word or spelling errors. Patient Condition at Discharge: Fair Plan - Discharge Summary Discharge Rx Participant: No New Discharge Prescriptions: New Pantoprazole Sodium [Protonix] 40 mg PO BID 30 Days #60 tab Thiamine [Vitamin B-1] 100 mg PO DAILY 30 Days #30 tab Aspirin 81 mg PO DAILY 30 Days #30 tab Losartan [Cozaar] 12.5 mg PO DAILY 30 Days #30 tab Atorvastatin [Lipitor] 40 mg PO HS #30 tab Metoprolol Tartrate [Lopressor] 25 mg PO BID 30 Days #60 tab Continue metFORMIN HCL [Glucophage] 500 mg PO TID HYDROcodone/APAP 10-325MG [[place] 10-325] 1 tab PO TID Febuxostat [Uloric] 40 mg PO DAILY Budesonide/Formoterol Fumarate [Symbicort 160-4.5 Mcg Inhaler] 2 puff INHALATION RT-BID Albuterol Sulfate [Albuterol Sulfate Hfa] 1 - 2 puff PO RT-Q6H PRN PRN Reason: Shortness Of Breath PARoxetine HCL [Paxil] 40 mg PO DAILY PRN PRN Reason: MOOD Discontinued amLODIPine [Norvasc] 7.5 mg PO DAILY cloNIDine HCL [Catapres] 0.1 mg PO TID Discharge Medication List Albuterol Sulfate [Albuterol Sulfate Hfa] 1 - 2 puff PO RT-Q6H PRN 09/22/23 [History] Budesonide/Formoterol Fumarate [Symbicort 160-4.5 Mcg Inhaler] 2 puff INHALATION RT-BID 09/22/23 [History] Febuxostat [Uloric] 40 mg PO DAILY 09/22/23 [History] HYDROcodone/APAP 10-325MG [[place] 10-325] 1 tab PO TID 09/22/23 [History] PARoxetine HCL [Paxil] 40 mg PO DAILY PRN 09/22/23 [History] metFORMIN HCL [Glucophage] 500 mg PO TID 09/22/23 [History] Aspirin 81 mg PO DAILY 30 Days #30 tab 09/26/23 [Rx] Atorvastatin [Lipitor] 40 mg PO HS #30 tab 09/26/23 [Rx] Losartan [Cozaar] 12.5 mg PO DAILY 30 Days #30 tab 09/26/23 [Rx] Metoprolol Tartrate [Lopressor] 25 mg PO BID 30 Days #60 tab 09/26/23 [Rx] Pantoprazole Sodium [Protonix] 40 mg PO BID 30 Days #60 tab 09/26/23 [Rx] Thiamine [Vitamin B-1] 100 mg PO DAILY 30 Days #30 tab 09/26/23 [Rx] Follow up Appointment(s)/Referral(s): Mary Deluca MD [Primary Care Provider] - 1-2 days Morris Stark MD [STAFF PHYSICIAN] - 1 Week Lynnette Damon MD [STAFF PHYSICIAN] - 1 Week Karl Gallegos DO [STAFF PHYSICIAN] - 1 Week Discharge Disposition: HOME SELF-CARE
== END 2023-09-26 11:56 | disposition home or self-care (01) | DRG 190 ==
LOC: EDSEX → EC 00:11 → 3SCARD 01:01
PROVIDERS: ADMIT Hospitalist; ATTEND Hospitalist
PROC: 4A023N7 Measurement of Cardiac Sampling and Pressure, Left Heart, Percutaneous Approach (ICD-10-PCS; principal; 2023-09-25 07:30)
PROC: B2111ZZ Fluoroscopy of Multiple Coronary Arteries using Low Osmolar Contrast (ICD-10-PCS; principal; 2023-09-25 07:30)
DX: I21.4 Non-ST elevation (NSTEMI) myocardial infarction (principal); D62 Acute posthemorrhagic anemia; E78.5 Hyperlipidemia, unspecified; F17.210 Nicotine dependence, cigarettes, uncomplicated; F32.A Depression, unspecified; F43.10 Post-traumatic stress disorder, unspecified; F90.9 Attention-deficit hyperactivity disorder, unspecified type; I10 Essential (primary) hypertension; I25.5 Ischemic cardiomyopathy; M79.673 Pain in unspecified foot; E11.9 Type 2 diabetes mellitus without complications; G89.29 Other chronic pain; M19.90 Unspecified osteoarthritis, unspecified site; F10.10 Alcohol abuse, uncomplicated; K92.2 Gastrointestinal hemorrhage, unspecified; T45.515A Adverse effect of anticoagulants, initial encounter; Z79.51 Long term (current) use of inhaled steroids; Z79.82 Long term (current) use of aspirin; Z79.84 Long term (current) use of oral hypoglycemic drugs; Z79.899 Other long term (current) drug therapy; Z88.1 Allergy status to other antibiotic agents; Z88.0 Allergy status to penicillin
CPT/HCPCS: 76937; 80053; 80061; 83036; 84443; 84484; 85025; 85027; 85610; 85730; 86850; 86900; 86901; 86920; 93005; 93306; 93458; 94640; 96365; 96366; 96372; 96375; 99285